=== PATIENT | female | born 1965 | race Caucasian/White ===

== ENCOUNTER → 2017-03-29 | Outpatient (CLI) | payer MEDICARE, MEDICAID ==
[~2017-03-29] MED LIST: ALBUTEROL0.09 MG/A2 IH; ALPRAZOLAM0.5 M3 PO; AMOXIL125 MG; BACTRIM DS 8001 TA1 PO; BRIN20TA PO; CANAGLIFLOZIN PO; CELEXA20 MG PO; CELEXA40 MG PO; CHERATUSSIN AC120 ML PO; CLARITIN10 MG PO; CLINDAMYCIN HC300 MG PO; CLINDAMYCIN150 MG PO; COLACE100 MG PO; CORDROL20 MG PO; COZAAR100 MG PO; CRESTOR5 MG PO; D-BIOTIN10 MG PO; DITROPAN XL5 MG PO; DIVALPROEX SOD125 MG PO; DRISDOL50000 IU PO; DUONEB 3 MG/3 ML3 M1 INH; FANAPT1 MG PO; FENOFIBRATE160 MG PO; FLEXERIL10 MG PO; FLONASE0.05 MG/AC NS; GLIMEPIRIDE4 MG PO; HYDROXYZINE PAM50 MG PO; INVOKAMET1 TA1 PO; INVOKANA PO; JANUVIA100 MG PO; LEVAQUIN750 M1 PO; LIPITOR10 MG PO; LOSARTAN POTAS100 M1 PO; LYRICA75 MG PO; MEDROL DOSEPAK4 MG PO; METFORMIN500 MG PO; NEXIUM40 MG PO; NORTRIPTYLINE H50 M1 PO; PREDNISONE10 MG PO; PROAIR HFA0.09 MG/AC INH; RANITIDINE300 MG PO; REQUIP1 MG PO; SEPTRA DS 800 M1 TAB PO; SEROQUEL25 MG PO; STELAZINE1 MG PO; Septra Ds 800 M1 TAB PO; TIZANIDINE HCL4 MG PO; TRAZODONE HYDR100 MG PO; TRAZODONE HYDR150 MG PO; TRAZODONE100 MG PO; TRAZODONE150 MG PO; TRICOR145 MG PO; TRILIPIX PO; ULTRAM50 MG PO; VISTARIL50 MG PO; VITAMIN D50000 I3 PO; ZITHROMAX Z PA250 MG PO; ZOFRAN4 MG PO
[2017-03-29 11:23] LABS: BASO % 0.6 % (0.0-1.0); EOS # 0.2 10*3/uL (0.0-0.4); EOS % 2.5 % (1.0-4.0); HEMATOCRIT 43.9 % (37.0-47.0); HEMOGLOBIN 15.7 g/dl (12.0-16.0); LYMPH % 27.7 % (27.0-41.0); MEAN CELL VOLUME 90.9 fl (81.0-99.0); MEAN CORPUSCULAR HGB 32.5 pg (27.0-31.0); MEAN CORPUSCULAR HGB CONC 35.8 g/dl (33.0-37.0); MEAN PLATELET VOLUME 8.5 fl (9.6-12.3); MONO # 0.5 10*3/uL (0.1-1.0); MONO % 6.3 % (3.0-9.0); NEUT # 4.5 10*3/uL (2.3-7.9); NEUT % 62.6 % (47.0-73.0); PLATELET COUNT AUTOMATED 247 10*3/uL (130-400); RED BLOOD COUNT 4.83 10*6/uL (4.10-5.10); RED CELL DISTRI WIDTH 11.5 % (0-14.5); WHITE BLOOD COUNT 7.2 10*3/uL (4.8-10.8)
[2017-03-29 11:51] LABS: ALBUMIN 3.9 gm/dl (3.1-4.5); BUN 16 mg/dl (7-24); CARBON DIOXIDE 30 mmol/L (21-32); CHLORIDE 106 mmol/L (98-107); CHOLESTEROL 166 mg/dL (<200); EST GLOM FILT AFRICAN AMERICAN > 60 ml/min; GLUCOSE 138 mg/dL (65-99); POTASSIUM 4.1 mmol/L (3.5-5.1); SGOT/AST 12 IU/L (3-35); SGPT/ALT 19 U/L (12-78); SODIUM 141 mmol/L (136-145); TRIGLYCERIDES 392 mg/dl (<150); VLDL CHOLESTEROL 78 mg/dL (6-40)
[2017-03-29 11:52] LABS: ALKALINE PHOSPHATASE 103 U/L (45-117); BILIRUBIN, TOTAL 1.2 mg/dl (0.2-1.0); HDL CHOLESTEROL 31 mg/dl (40-60); LDL CHOLESTEROL 57 mg/dL (9-159); TOTAL PROTEIN 7.4 gm/dL (6.4-8.2)
[2017-03-29 11:57] LABS: HEMOGLOBIN A1c 6.5 % (4.8-5.6)
== END | disposition home or self-care (01) ==
LOC: LAB 10:56
PROVIDERS: Family Medicine
DX: E78.00 Pure hypercholesterolemia, unspecified (principal); E11.9 Type 2 diabetes mellitus without complications; L63.8 Other alopecia areata

== ENCOUNTER 2017-08-30 01:13 | Inpatient (IN) | payer MEDICARE, MEDICAID ==
[2017-08-30] VITALS (14 sets, daily range): BP systolic 117–160; BP diastolic 66–98
[~2017-08-30] VITALS: Ht 172.7 cm; Wt 93.6 kg
[2017-08-30 01:37] LABS: ACT PARTIAL THROMBO TIME 23.7 SECONDS (20.8-31.5); BASO # 0.2 10*3/uL (0.0-0.1); EOS # 0.3 10*3/uL (0.0-0.4); EOS % 2.2 % (1.0-4.0); HEMATOCRIT 42.9 % (37.0-47.0); HEMOGLOBIN 15.6 g/dl (12.0-16.0); INTERNATIONAL NORM RATIO 0.9 (2.0-3.5); LYMPH # 4.4 10*3/uL (1.3-4.4); LYMPH % 29.2 % (27.0-41.0); MEAN CELL VOLUME 93.1 fl (81.0-99.0); MEAN CORPUSCULAR HGB 33.8 pg (27.0-31.0); MEAN CORPUSCULAR HGB CONC 36.4 g/dl (33.0-37.0); MEAN PLATELET VOLUME 9.1 fl (9.6-12.3); MONO % 6.5 % (3.0-9.0); NEUT # 9.2 10*3/uL (2.3-7.9); NEUT % 60.8 % (47.0-73.0); PLATELET COUNT AUTOMATED 347 10*3/uL (130-400); RED BLOOD COUNT 4.61 10*6/uL (4.10-5.10); RED CELL DISTRI WIDTH 12.2 % (0-14.5); WHITE BLOOD COUNT 15.1 10*3/uL (4.8-10.8)
[2017-08-30 01:44] LABS: ALBUMIN 3.8 gm/dl (3.1-4.5); ALKALINE PHOSPHATASE 125 U/L (45-117); BUN 19 mg/dl (7-24); CHLORIDE 97 mmol/L (98-107); CREATININE 1.08 mg/dL (0.55-1.02); MAGNESIUM 1.7 mg/dL (1.5-2.1); POTASSIUM 4.1 mmol/L (3.5-5.1); SGOT/AST 39 IU/L (3-35); SGPT/ALT 48 U/L (12-78); SODIUM 131 mmol/L (136-145); TOTAL PROTEIN 7.6 gm/dL (6.4-8.2); TROPONIN I < 0.015 ng/ml (<0.045)
--- NOTE | 2017-08-30 03:00 | NUR ---
A 52, admitted to 5E, under the services of BRODERICK Ibarra DO with a diagnosis of DM, SVT, CHEST PAIN. Chief complaint is TACHYCARDIA. Patient arrived via bed from ER. Monitor applied. Initial assessment completed. Vital signs taken and recorded. BRODERICK IBARRA DO notified of admission to the unit. Orders received. See assessment for past medical history, medications and allergies. Patient and/or family oriented to unit. visitation policy reviewed. Clothing/patient valuable form completed. YOLI JEAN BAPTISTE
[2017-08-30 04:19] LABS: BASO # 0.1 10*3/uL (0.0-0.1); BASO % 0.6 % (0.0-1.0); EOS # 0.3 10*3/uL (0.0-0.4); EOS % 1.9 % (1.0-4.0); HEMATOCRIT 37.7 % (37.0-47.0); HEMOGLOBIN 13.7 g/dl (12.0-16.0); LYMPH # 2.8 10*3/uL (1.3-4.4); LYMPH % 21.1 % (27.0-41.0); MEAN CELL VOLUME 92.2 fl (81.0-99.0); MEAN CORPUSCULAR HGB 33.5 pg (27.0-31.0); MEAN CORPUSCULAR HGB CONC 36.3 g/dl (33.0-37.0); MEAN PLATELET VOLUME 8.6 fl (9.6-12.3); MONO # 0.7 10*3/uL (0.1-1.0); MONO % 5.1 % (3.0-9.0); NEUT # 9.2 10*3/uL (2.3-7.9); NEUT % 70.8 % (47.0-73.0); RED BLOOD COUNT 4.09 10*6/uL (4.10-5.10); RED CELL DISTRI WIDTH 12.2 % (0-14.5)
[2017-08-30 04:22] LABS: PLATELET COUNT AUTOMATED 224 10*3/uL (130-400)
[2017-08-30 04:49] LABS: BUN 16 mg/dl (7-24); CHLORIDE 101 mmol/L (98-107); CHOLESTEROL 186 mg/dL (<200); CREATININE 0.89 mg/dL (0.55-1.02); FREE T4 1.09 ng/dl (0.76-1.46); HDL CHOLESTEROL 19 mg/dl (40-60); MAGNESIUM 1.8 mg/dL (1.5-2.1); PHOSPHOROUS 2.5 mg/dL (2.5-4.9); POTASSIUM 3.6 mmol/L (3.5-5.1); SODIUM 135 mmol/L (136-145)
[2017-08-30 04:57] LABS: TRIGLYCERIDES 1087 mg/dl (<150)
--- NOTE | 2017-08-30 04:59 | NUR ---
NEW ORDER FROM DR. VIZCARRA AT 0341 TO CHECK BLOOD SUGAR AND COVER. BLOOD SUGAR WAS 318 AND SHE WAS COVERED WITH 9U INSULIN[address] DR[address] JONES NOTIFIED OF CONSULT. WILL SEE IN THE MORNING.
[2017-08-30 06:23] LABS: VITAMIN D, 25-HYDROXY 20.5 ng/mL (30-100)
--- NOTE | 2017-08-30 06:34 | NUR ---
DR. WALKER NOTIFIED OF PATIENT DEMANDING IV IN RIGHT AC TO BE REMOVED AND WILL NOT LET NURSE PUT ANOTHER IV IN. HE ORDERED TO D/C FLUIDS AND CONTINUE THE CARDIZEM DRIP IN THE LEFT AC.
--- NOTE | 2017-08-30 09:37 | NUR ---
MEDICATED WITH TYLENOL FOR A HEADACHE SHE RATES A 2 ON THE PAIN SCALE.
--- NOTE | 2017-08-30 10:00 | NUR ---
DR. JONES IN TO SEE PATIENT. CARDIZEM DRIP DECREASED TO 5 MG/HR.
--- NOTE | 2017-08-30 11:00 | NUR ---
PATIENT STATES SOME RELIEF FROM TYLENOL.
--- NOTE | 2017-08-30 11:40 | NUR ---
PATIENT STARTED ON TOPROL XL PO. CARDIZEM DRIP TO BE DISCONTINUED.
--- NOTE | 2017-08-30 12:30 | NUR ---
CARDIZEM DRIP DISCONTINUED.
[2017-08-30 13:56] LABS: BILIRUBIN NEGATIVE (NEGATIVE); BLOOD NEGATIVE (NEGATIVE); CLARITY SL CLOUDY (CLEAR); COLOR YELLOW (YELLOW); GLUCOSE 3+ (NEGATIVE); KETONE NEGATIVE (NEGATIVE); LEUKO ESTERASE 1+ (NEGATIVE); NITRITE NEGATIVE (NEGATIVE); SPECIFIC GRAVITY 1.015 (1.005-1.030); UROBILINOGEN 0.2 E.U./dl (0.2-1.0)
[2017-08-30 14:09] LABS: BACTERIA 2+; EPITHELIAL CELLS 50-55; WBC 41-50 wbc/hpf (0-5)
[2017-08-30 14:12] LABS: URINE AMPHETAMINES < 1000 (1000ng/ml); URINE BARBITURATES < 200 (200ng/ml); URINE BENZODIAZEPINES < 200 (200ng/ml); URINE CANNABINOIDS (THC) > 50 (50ng/ml); URINE COCAINE < 300 (300ng/ml); URINE METHADONE < 300 (300ng/ml); URINE OPIATES < 300 (300ng/ml)
[2017-08-30 14:13] LABS: URINE PHENCYCLIDINE < 25 (25ng/ml)
--- NOTE | 2017-08-30 16:53 | NUR ---
MEDICATED WITH TYLENOL FOR HEADACHE SHE RATES A 4 ON THE PAIN SCALE.
--- NOTE | 2017-08-30 18:23 | NUR ---
NO FURTHER COMPLAINTS.
--- NOTE | 2017-08-30 20:00 | NUR ---
ASSUMED CARE OF PATIENT. ASSESSMENT COMPLETE. RESTING IN BED. FAMILY AT BEDSIDE. CALL LIGHT IN REACH. WILL CONTINUE TO MONITOR.
[2017-08-31] VITALS: BP 137/70
[2017-08-31 06:50] LABS: BASO # 0.1 10*3/uL (0.0-0.1); BASO % 0.7 % (0.0-1.0); EOS # 0.3 10*3/uL (0.0-0.4); EOS % 3.3 % (1.0-4.0); HEMATOCRIT 37.1 % (37.0-47.0); LYMPH # 2.2 10*3/uL (1.3-4.4); LYMPH % 29.1 % (27.0-41.0); MEAN CELL VOLUME 94.4 fl (81.0-99.0); MEAN CORPUSCULAR HGB 33.1 pg (27.0-31.0); MONO # 0.5 10*3/uL (0.1-1.0); MONO % 6.1 % (3.0-9.0); NEUT # 4.5 10*3/uL (2.3-7.9); NEUT % 60.3 % (47.0-73.0); PLATELET COUNT AUTOMATED 197 10*3/uL (130-400); RED BLOOD COUNT 3.93 10*6/uL (4.10-5.10); RED CELL DISTRI WIDTH 12.4 % (0-14.5); WHITE BLOOD COUNT 7.5 10*3/uL (4.8-10.8)
[2017-08-31 07:16] LABS: BUN 19 mg/dl (7-24); CHLORIDE 104 mmol/L (98-107); CREATININE 0.87 mg/dL (0.55-1.02); MAGNESIUM 1.9 mg/dL (1.5-2.1); POTASSIUM 4.1 mmol/L (3.5-5.1); SODIUM 138 mmol/L (136-145)
[2017-08-31 08:00] VITALS: BP 149/64
--- NOTE | 2017-08-31 08:30 | NUR ---
EXECUTIVE RELATIONS SPECIALIST VS. PT DID NOT WAKEN WHEN I CALLED HER NAME.
[2017-08-31 12:00] VITALS: BP 140/70
--- NOTE | 2017-08-31 12:41 | NUR ---
MEDICATED WITH ZOFRAN FOR NAUSEA.
--- NOTE | 2017-08-31 12:49 | NUR ---
TO CARDIAC REHAB.
--- NOTE | 2017-08-31 13:15 | NUR ---
INFORMED CONSENT OBTAINED FOR LEXISCAN NUCLEAR STRESS TEST WITH DR. JONES. RESTING EKG NSR WITH A RESTING HR OF 78 AND BP OF 130/80. LUNGS CLEAR WITH SPO2 OF 97% ON ROOM AIR. PT COMPLETED A 1:00 LEXISCAN PROTOCOL RECEIVING LEXISCAN 0.4 MG IV OVER 10 SECONDS. HAD NO CHEST PAIN OR ANY EKG CHANGES. DID C/O FEELING "WOOZY" THAT WAS RELIEVED IN RECOVERY. HAD A PEAK HR OF 112 WITH BP OF 120/80. LAST RECOVERY HR OF 98 WITH BP OF 120/82. AWAITING SCANNING IN STABLE CONDITION.
--- NOTE | 2017-08-31 14:27 | NUR ---
RETURNED FROM STRESS TEST.
[2017-08-31 16:00] VITALS: BP 151/81
[2017-08-31] MEDS ORDERED: ATORVASTATIN CA80 M1 PO (16:08)
[2017-08-31] MEDS ORDERED: METOPROLOL SUCC25 M2 PO (16:08)
[2017-08-31] MEDS ORDERED: Vitamin D PO (16:08)
[2017-08-31] MEDS ORDERED: FOLGARD TABLET1 EACH PO (16:08)
--- NOTE | 2017-08-31 18:00 | NUR ---
HEP LOCK REMOVED FOR DISCHARGE. Discharge instructions reviewed with patient/family. Patient receptive and verbalizes understanding. Follow-up care arranged. Written instructions given to patient/family. AYESHA STEPHENS
== END 2017-08-31 18:00 | disposition home or self-care (01) | DRG 309 ==
LOC: ED 01:13 → 5E 02:26 → EDHOLD 02:26 → 5E 02:37
PROVIDERS: Emergency Medicine Emergency Medical Services; Internal Medicine Nephrology; Student in an Organized Health Care Education/Training Program; ADMIT Internal Medicine
PROC: 4A02XM4 Measurement of Cardiac Total Activity, External Approach (ICD-10-PCS; principal; 2017-08-31)
PROC: 3E073KZ Introduction of Other Diagnostic Substance into Coronary Artery, Percutaneous Approach (ICD-10-PCS; principal; 2017-08-31)
DX: I47.1 Supraventricular tachycardia (principal); R65.10 Systemic inflammatory response syndrome (SIRS) of non-infectious origin without acute organ dysfunction; E87.8 Other disorders of electrolyte and fluid balance, not elsewhere classified; E11.65 Type 2 diabetes mellitus with hyperglycemia; F33.9 Major depressive disorder, recurrent, unspecified; K21.9 Gastro-esophageal reflux disease without esophagitis; D72.829 Elevated white blood cell count, unspecified; R74.0 Nonspecific elevation of levels of transaminase and lactic acid dehydrogenase [LDH]; F41.1 Generalized anxiety disorder; R07.9 Chest pain, unspecified; J44.9 Chronic obstructive pulmonary disease, unspecified; E78.00 Pure hypercholesterolemia, unspecified; I11.9 Hypertensive heart disease without heart failure; F17.210 Nicotine dependence, cigarettes, uncomplicated; Z88.0 Allergy status to penicillin; Z88.6 Allergy status to analgesic agent; Z88.8 Allergy status to other drugs, medicaments and biological substances; Z88.7 Allergy status to serum and vaccine; Z82.49 Family history of ischemic heart disease and other diseases of the circulatory system; Z83.3 Family history of diabetes mellitus; Z81.8 Family history of other mental and behavioral disorders; Z91.14 Patient's other noncompliance with medication regimen; Z90.49 Acquired absence of other specified parts of digestive tract; Z98.51 Tubal ligation status; Z90.79 Acquired absence of other genital organ(s); Z90.722 Acquired absence of ovaries, bilateral; Z79.899 Other long term (current) drug therapy; Z80.8 Family history of malignant neoplasm of other organs or systems; Z82.5 Family history of asthma and other chronic lower respiratory diseases

== ENCOUNTER 2017-10-30 19:08 | Emergency (ER) | payer MEDICARE, MEDICAID ==
[~2017-10-30] VITALS: Ht 175.2 cm; Wt 86.2 kg
--- NOTE | ~2017-10-30 | EKG ---
[place], [place] ELECTROCARDIOGRAM REPORT NAME: NONA ARSHAD UNIT #: [id number] ROOM: DOCTOR: ROZINA AMES,BHASKAR BIRTHDATE: [birth year] DOS: 10/30/2017 TIME: 1920 hours. IMPRESSION: 1. Sinus rhythm, sinus tachycardia. 2. Supraventricular ectopy. 2. Occasional ventricular ectopy. 4. Nondiagnostic ST-T changes. BHASKAR HANDY MD CM:EKGRPT:ELECTROCARDIOGRAM REPORT [id number] BHASKAR HANDY MD
--- NOTE | ~2017-10-30 | EKG ---
[place], [place] ELECTROCARDIOGRAM REPORT NAME: NONA ARSHAD UNIT #: [id number] ROOM: DOCTOR: ROZINA AMES,BHASKAR BIRTHDATE: [birth year] DOS: 10/30/2017 TIME: 1917 hours. IMPRESSION: 1. Supraventricular tachycardia, narrow complex, regularly, possible atrioventricular [place] tachycardia versus atrial tachycardia versus atrial flutter. 2. ST-T changes are due to tachycardia, mostly in the inferior and anterior leads. BHASKAR HANDY MD CM:EKGRPT:ELECTROCARDIOGRAM REPORT [id number] BHASKAR HANDY MD
[~2017-10-30 19:08] MED LIST changes: +ATORVASTATIN CA80 M1 PO; +FOLGARD TABLET1 EACH PO; +METOPROLOL SUCC25 M2 PO; +Vitamin D PO
[2017-10-30 19:34] LABS: BASO # 0.1 10*3/uL (0.0-0.1); BASO % 0.7 % (0.0-1.0); EOS # 0.1 10*3/uL (0.0-0.4); EOS % 1.8 % (1.0-4.0); HEMATOCRIT 38.7 % (37.0-47.0); HEMOGLOBIN 13.8 g/dl (12.0-16.0); LYMPH % 27.4 % (27.0-41.0); MEAN CELL VOLUME 92.1 fl (81.0-99.0); MEAN CORPUSCULAR HGB 32.9 pg (27.0-31.0); MEAN CORPUSCULAR HGB CONC 35.7 g/dl (33.0-37.0); MEAN PLATELET VOLUME 8.8 fl (9.6-12.3); MONO # 0.5 10*3/uL (0.1-1.0); MONO % 6.4 % (3.0-9.0); NEUT # 4.7 10*3/uL (2.3-7.9); NEUT % 63.4 % (47.0-73.0); PLATELET COUNT AUTOMATED 270 10*3/uL (130-400); RED CELL DISTRI WIDTH 12.6 % (0-14.5); WHITE BLOOD COUNT 7.4 10*3/uL (4.8-10.8)
[2017-10-30 19:47] LABS: ACT PARTIAL THROMBO TIME 23.6 SECONDS (20.8-31.5)
[2017-10-30 19:53] LABS: ALBUMIN 3.3 gm/dl (3.1-4.5); ALKALINE PHOSPHATASE 129 U/L (45-117); BUN 19 mg/dl (7-24); CHLORIDE 105 mmol/L (98-107); CREATININE 1.17 mg/dL (0.55-1.02); POTASSIUM 3.6 mmol/L (3.5-5.1); SGOT/AST 20 IU/L (3-35); SGPT/ALT 29 U/L (12-78); SODIUM 138 mmol/L (136-145); TOTAL PROTEIN 6.9 gm/dL (6.4-8.2)
[2017-10-30 19:56] LABS: TROPONIN I < 0.015 ng/ml (<0.045)
[2017-10-30 19:57] VITALS: BP 137/83
== END 2017-10-30 20:02 | disposition left against medical advice (07) ==
LOC: ED 19:08
PROVIDERS: Emergency Medicine
DX: R07.9 Chest pain, unspecified (principal); J45.909 Unspecified asthma, uncomplicated; K21.9 Gastro-esophageal reflux disease without esophagitis; I10 Essential (primary) hypertension; E78.5 Hyperlipidemia, unspecified; E78.00 Pure hypercholesterolemia, unspecified; F32.9 Major depressive disorder, single episode, unspecified; F31.9 Bipolar disorder, unspecified; E11.9 Type 2 diabetes mellitus without complications; F12.10 Cannabis abuse, uncomplicated; Z88.0 Allergy status to penicillin; Z88.6 Allergy status to analgesic agent; Z88.8 Allergy status to other drugs, medicaments and biological substances; Z79.899 Other long term (current) drug therapy; Z90.49 Acquired absence of other specified parts of digestive tract; Z98.51 Tubal ligation status

== ENCOUNTER 2017-11-13 19:00 | Inpatient (IN) | payer MEDICARE, MEDICAID ==
[~2017-11-13] VITALS: Ht 175.2 cm; Wt 91.7 kg
[2017-11-13 19:09] VITALS: BP 167/93
[2017-11-13 19:15] LABS: BASO # 0.1 10*3/uL (0.0-0.1); BASO % 1.1 % (0.0-1.0); EOS # 0.2 10*3/uL (0.0-0.4); HEMATOCRIT 43.6 % (37.0-47.0); HEMOGLOBIN 15.6 g/dl (12.0-16.0); LYMPH # 2.3 10*3/uL (1.3-4.4); LYMPH % 24.6 % (27.0-41.0); MEAN CELL VOLUME 91.6 fl (81.0-99.0); MEAN CORPUSCULAR HGB 32.8 pg (27.0-31.0); MEAN CORPUSCULAR HGB CONC 35.8 g/dl (33.0-37.0); MEAN PLATELET VOLUME 8.8 fl (9.6-12.3); MONO # 0.5 10*3/uL (0.1-1.0); MONO % 5.4 % (3.0-9.0); NEUT # 6.3 10*3/uL (2.3-7.9); NEUT % 66.5 % (47.0-73.0); PLATELET COUNT AUTOMATED 272 10*3/uL (130-400); RED BLOOD COUNT 4.76 10*6/uL (4.10-5.10); RED CELL DISTRI WIDTH 12.1 % (0-14.5); WHITE BLOOD COUNT 9.5 10*3/uL (4.8-10.8)
[2017-11-13 19:27] VITALS: BP 117/79
[2017-11-13 19:27] LABS: ACT PARTIAL THROMBO TIME 23.3 SECONDS (20.8-31.5)
[2017-11-13 19:34] LABS: ALBUMIN 3.9 gm/dl (3.1-4.5); ALKALINE PHOSPHATASE 144 U/L (45-117); BUN 15 mg/dl (7-24); CHLORIDE 99 mmol/L (98-107); POTASSIUM 4.1 mmol/L (3.5-5.1); SGOT/AST 20 IU/L (3-35); SGPT/ALT 27 U/L (12-78); SODIUM 134 mmol/L (136-145); TOTAL PROTEIN 7.9 gm/dL (6.4-8.2)
[2017-11-13 19:35] LABS: TROPONIN I < 0.015 ng/ml (<0.045)
[2017-11-13 20:16] VITALS: BP 137/88
[2017-11-14] VITALS: BP 166/98
[2017-11-14 04:00] VITALS: BP 129/80
== END 2017-11-14 08:34 | disposition left against medical advice (07) | DRG 313 ==
LOC: ED 19:00 → 4E 19:51 → EDHOLD 19:51 → 4E 20:20
PROVIDERS: Emergency Medicine Emergency Medical Services
DX: R07.9 Chest pain, unspecified (principal); I48.91 Unspecified atrial fibrillation; E11.9 Type 2 diabetes mellitus without complications; F32.9 Major depressive disorder, single episode, unspecified; F41.9 Anxiety disorder, unspecified; I10 Essential (primary) hypertension; J45.909 Unspecified asthma, uncomplicated; K21.9 Gastro-esophageal reflux disease without esophagitis; M54.9 Dorsalgia, unspecified; Z53.21 Procedure and treatment not carried out due to patient leaving prior to being seen by health care provider; Z81.8 Family history of other mental and behavioral disorders; Z86.79 Personal history of other diseases of the circulatory system; Z88.0 Allergy status to penicillin; Z88.6 Allergy status to analgesic agent; Z88.8 Allergy status to other drugs, medicaments and biological substances; Z88.7 Allergy status to serum and vaccine; Z83.3 Family history of diabetes mellitus; Z82.49 Family history of ischemic heart disease and other diseases of the circulatory system; Z80.9 Family history of malignant neoplasm, unspecified

== ENCOUNTER → 2017-11-22 | Outpatient (CLI) | payer MEDICARE, MEDICAID | END | disposition home or self-care (01) | LOC: LAB 12:47 | DX: L63.8 Other alopecia areata (principal); E78.5 Hyperlipidemia, unspecified; E11.9 Type 2 diabetes mellitus without complications; K21.9 Gastro-esophageal reflux disease without esophagitis ==

== ENCOUNTER 2018-01-03 16:03 | Inpatient (IN) | payer MEDICARE, MEDICAID ==
[~2018-01-03] VITALS: Ht 172.7 cm; Wt 90.7 kg
[2018-01-03 16:12] VITALS: BP 192/110
[2018-01-03 16:27] LABS: BASO # 0.1 10*3/uL (0.0-0.1); BASO % 0.5 % (0.0-1.0); EOS # 0.1 10*3/uL (0.0-0.4); EOS % 0.9 % (1.0-4.0); HEMATOCRIT 46.1 % (37.0-47.0); HEMOGLOBIN 16.8 g/dl (12.0-16.0); LYMPH # 1.9 10*3/uL (1.3-4.4); LYMPH % 16.6 % (27.0-41.0); MEAN CELL VOLUME 90.4 fl (81.0-99.0); MEAN CORPUSCULAR HGB 32.9 pg (27.0-31.0); MEAN CORPUSCULAR HGB CONC 36.4 g/dl (33.0-37.0); MEAN PLATELET VOLUME 8.7 fl (9.6-12.3); MONO # 0.6 10*3/uL (0.1-1.0); MONO % 4.9 % (3.0-9.0); NEUT # 8.8 10*3/uL (2.3-7.9); NEUT % 76.7 % (47.0-73.0); PLATELET COUNT AUTOMATED 308 10*3/uL (130-400); WHITE BLOOD COUNT 11.5 10*3/uL (4.8-10.8)
[2018-01-03 16:45] LABS: ALBUMIN 3.9 gm/dl (3.1-4.5); ALKALINE PHOSPHATASE 143 U/L (45-117); BUN 16 mg/dl (7-24); CHLORIDE 101 mmol/L (98-107); CREATININE 0.81 mg/dL (0.55-1.02); POTASSIUM 3.4 mmol/L (3.5-5.1); SGOT/AST 13 IU/L (3-35); SGPT/ALT 25 U/L (12-78); SODIUM 136 mmol/L (136-145)
[2018-01-03 16:46] LABS: TROPONIN I < 0.015 ng/ml (<0.045)
[2018-01-03 17:48] VITALS: BP 118/76
[2018-01-03 19:38] VITALS: BP 117/73
[2018-01-03 20:10] VITALS: BP 135/90
[2018-01-03] MEDS ORDERED: JANUMET XR 50-1 EAC1 PO (20:55)
[2018-01-03] MEDS ORDERED: NEXIUM40 MG PO (20:56)
[2018-01-03] MEDS ORDERED: CELEXA20 MG PO (20:56)
[2018-01-03] MEDS ORDERED: ALPRAZOLAM0.5 M3 PO (20:57)
[2018-01-03] MEDS ORDERED: ALDACTONE50 M1 PO (20:57)
[2018-01-04] VITALS: BP 95/48
[2018-01-04 06:06] LABS: BASO # 0.1 10*3/uL (0.0-0.1); BASO % 0.7 % (0.0-1.0); EOS # 0.2 10*3/uL (0.0-0.4); EOS % 3.5 % (1.0-4.0); HEMATOCRIT 42.4 % (37.0-47.0); LYMPH # 2.3 10*3/uL (1.3-4.4); LYMPH % 33.8 % (27.0-41.0); MEAN CORPUSCULAR HGB 32.5 pg (27.0-31.0); MEAN CORPUSCULAR HGB CONC 34.7 g/dl (33.0-37.0); MEAN PLATELET VOLUME 8.7 fl (9.6-12.3); MONO # 0.5 10*3/uL (0.1-1.0); MONO % 7.3 % (3.0-9.0); NEUT # 3.7 10*3/uL (2.3-7.9); NEUT % 54.3 % (47.0-73.0); PLATELET COUNT AUTOMATED 227 10*3/uL (130-400); RED BLOOD COUNT 4.53 10*6/uL (4.10-5.10); RED CELL DISTRI WIDTH 12.3 % (0-14.5); WHITE BLOOD COUNT 6.8 10*3/uL (4.8-10.8)
[2018-01-04 06:26] LABS: HEMOGLOBIN 14.7 g/dl (12.0-16.0); MEAN CELL VOLUME 93.6 fl (81.0-99.0)
[2018-01-04 06:38] LABS: ALBUMIN 3.2 gm/dl (3.1-4.5); CHLORIDE 104 mmol/L (98-107); SGOT/AST 16 IU/L (3-35); SGPT/ALT 22 U/L (12-78); SODIUM 138 mmol/L (136-145)
[2018-01-04 06:39] LABS: ACT PARTIAL THROMBO TIME 22.6 SECONDS (20.8-31.5)
[2018-01-04 06:47] LABS: ALKALINE PHOSPHATASE 106 U/L (45-117); BUN 19 mg/dl (7-24); CHOLESTEROL 164 mg/dL (<200); CREATININE 0.79 mg/dL (0.55-1.02); HDL CHOLESTEROL 23 mg/dl (40-60); THYROID STIM HORMONE (HS) 0.817 uIU/ml (0.358-4.75); TOTAL PROTEIN 6.5 gm/dL (6.4-8.2); TRIGLYCERIDES 516 mg/dl (<150)
[2018-01-04 06:57] LABS: VITAMIN D, 25-HYDROXY 27.3 ng/mL (30-100)
[2018-01-04 08:00] VITALS: BP 96/56
[2018-01-04] MEDS ORDERED: VITAMIN D-32000 UNIT PO (10:31)
== END 2018-01-04 11:45 | disposition left against medical advice (07) | DRG 313 ==
LOC: ED 16:03 → EDHOLD 18:46 → 5E 19:47
PROVIDERS: Emergency Medicine; Family Medicine Adult Medicine
DX: R07.9 Chest pain, unspecified (principal); E11.65 Type 2 diabetes mellitus with hyperglycemia; L03.032 Cellulitis of left toe; E78.00 Pure hypercholesterolemia, unspecified; K21.9 Gastro-esophageal reflux disease without esophagitis; I10 Essential (primary) hypertension; R00.0 Tachycardia, unspecified; E80.6 Other disorders of bilirubin metabolism; E87.6 Hypokalemia; D64.9 Anemia, unspecified; R74.0 Nonspecific elevation of levels of transaminase and lactic acid dehydrogenase [LDH]; E55.9 Vitamin D deficiency, unspecified; E53.8 Deficiency of other specified B group vitamins; F12.90 Cannabis use, unspecified, uncomplicated; J45.909 Unspecified asthma, uncomplicated; F31.9 Bipolar disorder, unspecified; F41.1 Generalized anxiety disorder; E78.5 Hyperlipidemia, unspecified; Z90.89 Acquired absence of other organs; Z90.49 Acquired absence of other specified parts of digestive tract; Z98.51 Tubal ligation status; Z83.6 Family history of other diseases of the respiratory system; Z86.79 Personal history of other diseases of the circulatory system; Z82.49 Family history of ischemic heart disease and other diseases of the circulatory system; Z80.8 Family history of malignant neoplasm of other organs or systems; Z88.0 Allergy status to penicillin; Z88.8 Allergy status to other drugs, medicaments and biological substances; Z88.7 Allergy status to serum and vaccine; Z79.899 Other long term (current) drug therapy

== ENCOUNTER 2018-02-19 17:00 | Inpatient (IN) | payer MEDICARE, MEDICAID ==
[~2018-02-19] VITALS: Ht 175.2 cm; Wt 90.3 kg
--- NOTE | ~2018-02-19 | CON ---
[place], [place] REPORT OF CONSULTATION NAME: NONA ARSHAD UNIT #: [id number] ROOM: 519 DOCTOR: LISA PETTY MD BIRTHDATE: [birth year] DOS: 02/21/2018 CHIEF COMPLAINT: "I came in here because of chest pain, but I have not slept for weeks. HISTORY OF PRESENT ILLNESS: This is a 52-year-old white female known to me from my previous practice in [place], [place]. The patient is admitted due to chest pain and reports that she is going to be having an ablation soon. 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 He is returning to the area to be with her. She reports ongoing depression with poor sleep with difficulty falling asleep, sleep continuity disturbance, commonwealth attorney awakening, anergia, anhedonia, crying spells, extreme anxiety. The anxiety is overriding throughout the day and often times will trigger bouts of chest pain. She most recently states that she has been tried on trazodone as high as 300 mg at bedtime with it not being effective anymore for sleep. She has been using Xanax at home and instead of using 0.5 mg 3 times a day she has been using one in the morning and using 2 at night for sleep aid, which does give her some sleep. She reports having tried Rozerem, but it too has been ineffective. She has also been on multiple antidepressants including Remeron without effect. She is willing to allow me to adjust her medications. MENTAL STATUS: She is alert and oriented. Mood does seem to be depressed with anxious overtones. She endorses multiple neurovegetative symptoms. She is not suicidal or homicidal, or self-injurious. She is not manic, hypomanic or psychotic. Memory is intact. DIAGNOSES: Major depression, recurrent, dysthymic disorder and panic disorder. PLAN: I will order her Xanax 0.5 mg b.i.d. and 1 mg at bedtime. Also, utilize Seroquel 50 mg at bedtime as a mood stabilizer and sleep aid. I will discontinue her trazodone due to ineffectiveness. She had in the past been seeing Dr. Wesley Damon as a counselor. It may not be a bad idea to restart counseling services and then follow up with Mariana Disla, the nurse practitioner, when discharged. LISA PETTY MD CM:CONSTR:REPORT OF CONSULTATION [id number] 02/21/18 1008 interface
[~2018-02-19 17:00] MED LIST changes: +ALDACTONE50 M1 PO; +JANUMET XR 50-1 EAC1 PO; +VITAMIN D-32000 UNIT PO
[2018-02-19 17:14] VITALS: BP 136/68
[2018-02-19 17:45] LABS: ACT PARTIAL THROMBO TIME 23.3 SECONDS (20.8-31.5)
[2018-02-19 17:50] LABS: ALKALINE PHOSPHATASE 149 U/L (45-117); BASO # 0.1 10*3/uL (0.0-0.1); BASO % 0.7 % (0.0-1.0); BUN 24 mg/dl (7-24); CHLORIDE 97 mmol/L (98-107); CREATININE 1.11 mg/dL (0.55-1.02); EOS # 0.2 10*3/uL (0.0-0.4); EOS % 1.5 % (1.0-4.0); HEMATOCRIT 43.9 % (37.0-47.0); LYMPH # 3.2 10*3/uL (1.3-4.4); LYMPH % 27.7 % (27.0-41.0); MEAN CELL VOLUME 89.2 fl (81.0-99.0); MEAN CORPUSCULAR HGB 32.5 pg (27.0-31.0); MEAN CORPUSCULAR HGB CONC 36.4 g/dl (33.0-37.0); MEAN PLATELET VOLUME 9.1 fl (9.6-12.3); MONO # 0.5 10*3/uL (0.1-1.0); MONO % 4.8 % (3.0-9.0); NEUT # 7.4 10*3/uL (2.3-7.9); NEUT % 64.9 % (47.0-73.0); PLATELET COUNT AUTOMATED 313 10*3/uL (130-400); POTASSIUM 4.4 mmol/L (3.5-5.1); RED BLOOD COUNT 4.92 10*6/uL (4.10-5.10); SGOT/AST 33 IU/L (3-35); SGPT/ALT 27 U/L (12-78); SODIUM 131 mmol/L (136-145); TOTAL PROTEIN 8.1 gm/dL (6.4-8.2); WHITE BLOOD COUNT 11.4 10*3/uL (4.8-10.8)
[2018-02-19 17:57] LABS: TROPONIN I < 0.015 ng/ml (<0.045)
[2018-02-19 18:02] VITALS: BP 149/90
[2018-02-19 18:17] VITALS: BP 149/90
[2018-02-19 19:27] VITALS: BP 138/82
[2018-02-19 19:45] VITALS: BP 152/88
[2018-02-20] VITALS: BP 144/81
[2018-02-20 08:00] VITALS: BP 133/79
[2018-02-20 12:00] VITALS: BP 128/72
[2018-02-20 16:00] VITALS: BP 138/89
[2018-02-21] VITALS: BP 121/81
[2018-02-21 10:35] VITALS: BP 140/86
[2018-02-21 12:00] VITALS: BP 134/80
[2018-02-21] MEDS ORDERED: XANAX1 MG PO (12:53)
[2018-02-21] MEDS ORDERED: QUETIAPINE FUMA50 M1 PO (12:53)
[2018-02-21] MEDS ORDERED: METOPROLOL SUCC25 M2 PO (12:53)
[2018-02-21 16:00] VITALS: BP 139/78
== END 2018-02-21 15:51 | disposition home or self-care (01) | DRG 206 ==
LOC: ED 17:00 → EDHOLD 18:22 → 5E 18:22 → EDHOLD 18:36 → 5E 18:44
PROVIDERS: Student in an Organized Health Care Education/Training Program
DX: M94.0 Chondrocostal junction syndrome [Tietze] (principal); E87.8 Other disorders of electrolyte and fluid balance, not elsewhere classified; E11.65 Type 2 diabetes mellitus with hyperglycemia; E87.1 Hypo-osmolality and hyponatremia; I47.1 Supraventricular tachycardia; F41.1 Generalized anxiety disorder; K21.9 Gastro-esophageal reflux disease without esophagitis; J45.909 Unspecified asthma, uncomplicated; Z88.0 Allergy status to penicillin; F12.10 Cannabis abuse, uncomplicated; E78.2 Mixed hyperlipidemia; F31.9 Bipolar disorder, unspecified; I10 Essential (primary) hypertension; Z90.49 Acquired absence of other specified parts of digestive tract; Z90.710 Acquired absence of both cervix and uterus; Z88.4 Allergy status to anesthetic agent; Z98.51 Tubal ligation status; Z72.89 Other problems related to lifestyle; Z83.6 Family history of other diseases of the respiratory system; Z80.8 Family history of malignant neoplasm of other organs or systems; Z83.3 Family history of diabetes mellitus; Z82.49 Family history of ischemic heart disease and other diseases of the circulatory system; Z79.4 Long term (current) use of insulin; Z91.14 Patient's other noncompliance with medication regimen

== ENCOUNTER 2018-02-28 17:06 | Emergency (ER) | payer MEDICARE, MEDICAID ==
[~2018-02-28] VITALS: Wt 89.8 kg
[~2018-02-28 17:06] MED LIST changes: +QUETIAPINE FUMA50 M1 PO; +XANAX1 MG PO
[2018-02-28 17:41] LABS: BASO % 0.6 % (0.0-1.0); EOS # 0.1 10*3/uL (0.0-0.4); EOS % 1.1 % (1.0-4.0); HEMATOCRIT 41.8 % (37.0-47.0); HEMOGLOBIN 14.9 g/dl (12.0-16.0); LYMPH # 2.2 10*3/uL (1.3-4.4); LYMPH % 30.8 % (27.0-41.0); MEAN CELL VOLUME 92.3 fl (81.0-99.0); MEAN CORPUSCULAR HGB 32.9 pg (27.0-31.0); MEAN CORPUSCULAR HGB CONC 35.6 g/dl (33.0-37.0); MEAN PLATELET VOLUME 8.7 fl (9.6-12.3); MONO # 0.3 10*3/uL (0.1-1.0); MONO % 4.3 % (3.0-9.0); NEUT # 4.6 10*3/uL (2.3-7.9); NEUT % 62.6 % (47.0-73.0); PLATELET COUNT AUTOMATED 250 10*3/uL (130-400); RED BLOOD COUNT 4.53 10*6/uL (4.10-5.10); WHITE BLOOD COUNT 7.3 10*3/uL (4.8-10.8)
[2018-02-28 17:54] LABS: BUN 11 mg/dl (7-24); CHLORIDE 103 mmol/L (98-107); CREATININE 0.94 mg/dL (0.55-1.02); POTASSIUM 3.8 mmol/L (3.5-5.1); SODIUM 138 mmol/L (136-145)
[2018-02-28 17:56] LABS: ACETAMINOPHEN (TYLENOL) < 2.0 ug/ml (10-30)
[2018-02-28 19:34] LABS: BILIRUBIN NEGATIVE (NEGATIVE); BLOOD NEGATIVE (NEGATIVE); CLARITY CLEAR (CLEAR); COLOR YELLOW (YELLOW); GLUCOSE 3+ (NEGATIVE); KETONE NEGATIVE (NEGATIVE); LEUKO ESTERASE NEGATIVE (NEGATIVE); NITRITE NEGATIVE (NEGATIVE); UROBILINOGEN 0.2 E.U./dl (0.2-1.0)
[2018-02-28 19:43] LABS: URINE AMPHETAMINES < 1000 (1000ng/ml); URINE BARBITURATES < 200 (200ng/ml); URINE BENZODIAZEPINES < 200 (200ng/ml); URINE CANNABINOIDS (THC) > 50 (50ng/ml); URINE COCAINE < 300 (300ng/ml); URINE METHADONE < 300 (300ng/ml); URINE OPIATES < 300 (300ng/ml)
[2018-02-28 19:44] LABS: URINE PHENCYCLIDINE < 25 (25ng/ml)
[2018-02-28 19:55] LABS: RBC 0-2 rbc/hpf (0-2); WBC 0-2 wbc/hpf (0-5)
[2018-03-01 07:25] VITALS: BP 144/78
== END 2018-03-01 09:29 | disposition home or self-care (01) ==
LOC: ED 17:06
PROVIDERS: Emergency Medicine
DX: F31.9 Bipolar disorder, unspecified (principal); K21.9 Gastro-esophageal reflux disease without esophagitis; I10 Essential (primary) hypertension; E11.65 Type 2 diabetes mellitus with hyperglycemia; E78.5 Hyperlipidemia, unspecified; F17.200 Nicotine dependence, unspecified, uncomplicated; J45.909 Unspecified asthma, uncomplicated; Z88.0 Allergy status to penicillin; Z88.5 Allergy status to narcotic agent; Z88.6 Allergy status to analgesic agent; Z79.899 Other long term (current) drug therapy

== ENCOUNTER 2018-04-29 14:30 | Emergency (ER) | payer MEDICARE, MEDICAID ==
[~2018-04-29] VITALS: Ht 172.7 cm; Wt 85.3 kg
[2018-04-29 14:49] LABS: BASO # 0.1 10*3/uL (0.0-0.1); EOS # 0.2 10*3/uL (0.0-0.4); EOS % 2.6 % (1.0-4.0); HEMATOCRIT 43.5 % (37.0-47.0); HEMOGLOBIN 15.5 g/dl (12.0-16.0); LYMPH % 26.3 % (27.0-41.0); MEAN CELL VOLUME 90.6 fl (81.0-99.0); MEAN CORPUSCULAR HGB 32.3 pg (27.0-31.0); MEAN CORPUSCULAR HGB CONC 35.6 g/dl (33.0-37.0); MEAN PLATELET VOLUME 8.8 fl (9.6-12.3); MONO # 0.5 10*3/uL (0.1-1.0); MONO % 5.8 % (3.0-9.0); NEUT % 63.9 % (47.0-73.0); PLATELET COUNT AUTOMATED 277 10*3/uL (130-400); RED CELL DISTRI WIDTH 11.7 % (0-14.5); WHITE BLOOD COUNT 7.8 10*3/uL (4.8-10.8)
[2018-04-29] MEDS ORDERED: ASPIRIN CHEWABL81 MG PO (14:59)
[2018-04-29 15:05] LABS: ALBUMIN 3.9 gm/dl (3.1-4.5); ALKALINE PHOSPHATASE 159 U/L (45-117); BUN 13 mg/dl (7-24); CHLORIDE 102 mmol/L (98-107); CREATININE 0.92 mg/dL (0.55-1.02); POTASSIUM 4.3 mmol/L (3.5-5.1); SGOT/AST 21 IU/L (3-35); SGPT/ALT 34 U/L (12-78); SODIUM 137 mmol/L (136-145); TOTAL PROTEIN 7.8 gm/dL (6.4-8.2)
[2018-04-29 15:06] LABS: TROPONIN I < 0.015 ng/ml (<0.045)
[2018-04-29 15:35] VITALS: BP 136/91
== END 2018-04-29 17:33 | disposition home or self-care (01) ==
LOC: ED 14:30
PROVIDERS: Emergency Medicine
DX: R07.9 Chest pain, unspecified (principal); J45.909 Unspecified asthma, uncomplicated; F31.9 Bipolar disorder, unspecified; K21.9 Gastro-esophageal reflux disease without esophagitis; I10 Essential (primary) hypertension; E78.5 Hyperlipidemia, unspecified; E78.00 Pure hypercholesterolemia, unspecified; E87.6 Hypokalemia; E11.65 Type 2 diabetes mellitus with hyperglycemia; Z88.5 Allergy status to narcotic agent; Z88.0 Allergy status to penicillin; Z88.6 Allergy status to analgesic agent; Z79.82 Long term (current) use of aspirin; Z79.899 Other long term (current) drug therapy; Z90.49 Acquired absence of other specified parts of digestive tract; Z98.51 Tubal ligation status

== ENCOUNTER → 2018-05-02 | Outpatient (CLI) | payer MEDICARE, MEDICAID ==
[~2018-05-02] MED LIST changes: +ASPIRIN CHEWABL81 MG PO
== END | disposition home or self-care (01) ==
LOC: US 14:21
DX: M79.89 Other specified soft tissue disorders (principal); R60.0 Localized edema; M79.662 Pain in left lower leg; M79.661 Pain in right lower leg

== ENCOUNTER 2018-05-31 16:04 | Emergency (ER) | payer MEDICARE, MEDICAID ==
[2018-05-31 16:05] VITALS: BP 139/63
[2018-05-31] MEDS ORDERED: PREDNISONE10 MG PO (17:21)
[2018-05-31] MEDS ORDERED: NORCO 5-325 TA1 EACH PO (18:22)
== END 2018-05-31 19:05 | disposition home or self-care (01) ==
LOC: ED 16:04
DX: M48.061 Spinal stenosis, lumbar region without neurogenic claudication (principal); M54.16 Radiculopathy, lumbar region; F17.200 Nicotine dependence, unspecified, uncomplicated; F12.10 Cannabis abuse, uncomplicated; Z88.0 Allergy status to penicillin; Z88.8 Allergy status to other drugs, medicaments and biological substances; Z88.5 Allergy status to narcotic agent; Z79.82 Long term (current) use of aspirin; Z79.899 Other long term (current) drug therapy; Z90.49 Acquired absence of other specified parts of digestive tract; Z98.51 Tubal ligation status

== ENCOUNTER 2019-05-01 14:24 | Inpatient (IN) | payer MEDICARE ==
[~2019-05-01] VITALS: Ht 172.7 cm; Wt 86.4 kg
--- NOTE | ~2019-05-01 | EKG ---
[place], [place] ELECTROCARDIOGRAM REPORT NAME: NONA ARSHAD UNIT #: [id number] ROOM: 519 DOCTOR: DAWIT DRAFT REPORT BIRTHDATE: [birth year] [facility] Test Date: 2019-05-01 Test Time: 19:56:26 Pat Name: NONA ARSHAD Department: Room: 519 Gender: F Combat Rifle Crewmember: Mely Saenz : 1965 Requested By: DONOVAN LEDER Order Number: [id number] Reading MD: Rico Peter MD Measurements Intervals [place] Rate: 93 P: 43 AL: 130 QRS: 20 QRSD: 103 T: 52 QT: 379 QTc: 472 Interpretive Statements Sinus rhythm Abnormal R-wave progression, early transition Borderline ST depression, lateral leads Baseline wander in lead(s) V5,V6 Electronically Signed On 05-03-2019 15:46:13 PDT by Rico Peter MD CM:EKGRPT:ELECTROCARDIOGRAM REPORT [id number] DONOVAN PASTOR DRAFT REPORT DONOVAN ELDER M.D.
--- NOTE | ~2019-05-01 | EKG ---
[place], [place] ELECTROCARDIOGRAM REPORT NAME: NONA ARSHAD UNIT #: [id number] ROOM: 519 DOCTOR: DAWIT DRAFT REPORT BIRTHDATE: [birth year] [facility] Test Date: 2019-05-01 Test Time: 16:46:32 Pat Name: NONA ARSHAD Department: Room: 519 Gender: F Revenue Coordinator: Ramandeep Mott : 1965 Requested By: DONOVAN ELDER Order Number: [id number] Reading MD: Rico Peter MD Measurements Intervals [place] Rate: 95 P: SD: QRS: 3 QRSD: 107 T: 48 QT: 347 QTc: 436 Interpretive Statements Normal sinus rhythm Abnormal R-wave progression, early transition No previous ECG available for comparison Electronically Signed On 05-03-2019 15:44:26 PDT by Rico Peter MD CM:EKGRPT:ELECTROCARDIOGRAM REPORT [id number] 1544 DONOVAN PASTOR DRAFT REPORT DONOVAN ELDER M.D.
--- NOTE | ~2019-05-01 | EKG ---
[place], [place] ELECTROCARDIOGRAM REPORT NAME: NONA ARSHAD UNIT #: [id number] ROOM: 519 DOCTOR: DAWIT DRAFT REPORT BIRTHDATE: [birth year] [facility] Test Date: 2019-05-01 Test Time: 14:29:09 Pat Name: NONA ARSHAD Department: Room: 519 Gender: F Shut Off Worker: Ramandeep Mott : 1965 Requested By: DONOVAN ELDER Order Number: [id number] Reading MD: Rico Peter MD Measurements Intervals [place] Rate: 97 P: 40 ID: 133 QRS: 2 QRSD: 102 T: 56 QT: 358 QTc: 455 Interpretive Statements Sinus rhythm Abnormal R-wave progression, early transition No previous ECG available for comparison Electronically Signed On 05-03-2019 15:42:35 PDT by Rico Peter MD CM:EKGRPT:ELECTROCARDIOGRAM REPORT [id number] 1542 DONOVAN PASTOR DRAFT REPORT DONOVAN ELDER M.D.
[2019-05-01 14:24] VITALS: BP 163/92
[~2019-05-01 14:24] MED LIST changes: +NORCO 5-325 TA1 EACH PO
[2019-05-01 14:56] LABS: BASO # 0.1 10*3/uL (0.0-0.1); EOS # 0.3 10*3/uL (0.0-0.4); EOS % 4.1 % (1.0-4.0); HEMATOCRIT 42.3 % (37.0-47.0); HEMOGLOBIN 15.4 g/dl (12.0-16.0); LYMPH % 25.2 % (27.0-41.0); MEAN CELL VOLUME 92.2 fl (81.0-99.0); MEAN CORPUSCULAR HGB 33.6 pg (27.0-31.0); MEAN CORPUSCULAR HGB CONC 36.4 g/dl (33.0-37.0); MEAN PLATELET VOLUME 8.7 fl (9.6-12.3); MONO # 0.4 10*3/uL (0.1-1.0); MONO % 5.1 % (3.0-9.0); NEUT % 64.1 % (47.0-73.0); PLATELET COUNT AUTOMATED 220 10*3/uL (130-400); RED BLOOD COUNT 4.59 10*6/uL (4.10-5.10); RED CELL DISTRI WIDTH 11.9 % (0-14.5); WHITE BLOOD COUNT 7.8 10*3/uL (4.8-10.8)
[2019-05-01 15:07] LABS: ACT PARTIAL THROMBO TIME 23.9 SECONDS (20.0-32.1); INTERNATIONAL NORM RATIO 0.9 (2.0-3.5)
[2019-05-01 15:14] LABS: ALBUMIN 3.6 gm/dl (3.1-4.5); ALKALINE PHOSPHATASE 156 U/L (45-117); BUN 16 mg/dl (7-24); CHLORIDE 103 mmol/L (98-107); CREATININE 0.92 mg/dL (0.55-1.02); SGOT/AST 31 IU/L (3-35); SGPT/ALT 41 U/L (12-78); SODIUM 138 mmol/L (136-145); TOTAL PROTEIN 7.5 gm/dL (6.4-8.2)
[2019-05-01 15:15] LABS: TROPONIN I < 0.015 ng/ml (<0.045)
[2019-05-01 15:20] LABS: BILIRUBIN NEGATIVE (NEGATIVE); BLOOD NEGATIVE (NEGATIVE); CLARITY CLEAR (CLEAR); COLOR YELLOW (YELLOW); GLUCOSE 3+ (NEGATIVE); KETONE TRACE (NEGATIVE); LEUKO ESTERASE NEGATIVE (NEGATIVE); NITRITE NEGATIVE (NEGATIVE); UROBILINOGEN 0.2 E.U./dl (0.2-1.0)
[2019-05-01 15:29] LABS: BACTERIA 1+; EPITHELIAL CELLS 0-2; YEAST TRACE
[2019-05-01 16:00] VITALS: BP 154/54
[2019-05-01] MEDS ORDERED: BYDUREON P2 MG/0.65 SQ (18:24)
[2019-05-01] MEDS ORDERED: CYCLOBENZAPRINE5 M3 PO (18:24)
[2019-05-01] MEDS ORDERED: DIFLUCAN150 MG PO (18:25)
[2019-05-01] MEDS ORDERED: IBU800 M1 PO (18:26)
[2019-05-01] MEDS ORDERED: PREVACID15 M1 PO (18:26)
[2019-05-01] MEDS ORDERED: GLUCOPHAGE500 M1 PO (18:27)
[2019-05-01] MEDS ORDERED: ONGLYZA5 MG PO (18:28)
[2019-05-01] MEDS ORDERED: SEROQUEL50 MG PO (18:33)
[2019-05-01] MEDS ORDERED: VITAMIN D50000 UNIT PO (18:34)
[2019-05-01] MEDS ORDERED: VRAYLAR6 MG PO (18:35)
[2019-05-01 20:00] VITALS: BP 168/95
[2019-05-01 21:59] VITALS: BP 164/86
[2019-05-01 23:06] VITALS: BP 130/74
[2019-05-02] VITALS: BP 122/77
[2019-05-02 06:05] LABS: BASO # 0.1 10*3/uL (0.0-0.1); EOS # 0.3 10*3/uL (0.0-0.4); EOS % 5.3 % (1.0-4.0); HEMATOCRIT 38.7 % (37.0-47.0); HEMOGLOBIN 13.7 g/dl (12.0-16.0); LYMPH # 2.3 10*3/uL (1.3-4.4); LYMPH % 37.2 % (27.0-41.0); MEAN CELL VOLUME 94.2 fl (81.0-99.0); MEAN CORPUSCULAR HGB 33.3 pg (27.0-31.0); MEAN CORPUSCULAR HGB CONC 35.4 g/dl (33.0-37.0); MEAN PLATELET VOLUME 8.8 fl (9.6-12.3); MONO # 0.4 10*3/uL (0.1-1.0); MONO % 6.2 % (3.0-9.0); NEUT # 3.1 10*3/uL (2.3-7.9); PLATELET COUNT AUTOMATED 201 10*3/uL (130-400); RED BLOOD COUNT 4.11 10*6/uL (4.10-5.10); WHITE BLOOD COUNT 6.3 10*3/uL (4.8-10.8)
[2019-05-02 06:28] LABS: BUN 16 mg/dl (7-24); CHLORIDE 110 mmol/L (98-107); POTASSIUM 3.7 mmol/L (3.5-5.1); SODIUM 143 mmol/L (136-145)
[2019-05-02 06:33] LABS: CREATININE 0.85 mg/dL (0.55-1.02); PHOSPHOROUS 3.9 mg/dL (2.5-4.9)
[2019-05-02 07:45] VITALS: BP 142/80
[2019-05-02] MEDS ORDERED: ZITHROMAX250 MG PO (08:36)
== END 2019-05-02 11:00 | disposition home or self-care (01) | DRG 872 ==
LOC: ED 14:24 → 5E 16:48 → EDHOLD 16:48 → 5E 17:10
PROVIDERS: Emergency Medicine; Physician Assistant; Student in an Organized Health Care Education/Training Program; ADMIT Internal Medicine
DX: A41.9 Sepsis, unspecified organism (principal); E44.0 Moderate protein-calorie malnutrition; N30.00 Acute cystitis without hematuria; I24.9 Acute ischemic heart disease, unspecified; R07.89 Other chest pain; R09.1 Pleurisy; R74.8 Abnormal levels of other serum enzymes; F31.9 Bipolar disorder, unspecified; K21.9 Gastro-esophageal reflux disease without esophagitis; E11.65 Type 2 diabetes mellitus with hyperglycemia; E78.5 Hyperlipidemia, unspecified; I10 Essential (primary) hypertension; F41.1 Generalized anxiety disorder; J45.909 Unspecified asthma, uncomplicated; M48.00 Spinal stenosis, site unspecified; E55.9 Vitamin D deficiency, unspecified; E53.8 Deficiency of other specified B group vitamins; R42 Dizziness and giddiness; Z88.6 Allergy status to analgesic agent; Z88.5 Allergy status to narcotic agent; Z91.09 Other allergy status, other than to drugs and biological substances; Z88.0 Allergy status to penicillin; Z88.7 Allergy status to serum and vaccine; Z90.49 Acquired absence of other specified parts of digestive tract; Z90.79 Acquired absence of other genital organ(s); Z90.722 Acquired absence of ovaries, bilateral; Z98.51 Tubal ligation status; Z82.5 Family history of asthma and other chronic lower respiratory diseases; Z80.8 Family history of malignant neoplasm of other organs or systems; Z82.49 Family history of ischemic heart disease and other diseases of the circulatory system; Z83.3 Family history of diabetes mellitus; Z81.8 Family history of other mental and behavioral disorders; Z79.82 Long term (current) use of aspirin; Z79.899 Other long term (current) drug therapy; Z68.28 Body mass index [BMI] 28.0-28.9, adult

== ENCOUNTER 2019-06-06 14:57 | Emergency (ER) | payer MEDICARE ==
[~2019-06-06] VITALS: Ht 175.2 cm; Wt 87.1 kg
--- NOTE | ~2019-06-06 | EKG ---
[place], [place] ELECTROCARDIOGRAM REPORT NAME: NONA ARSHAD UNIT #: [id number] ROOM: DOCTOR: EPIPHANY DRAFT REPORT BIRTHDATE: [birth year] [facility] Test Date: 2019-06-06 Test Time: 16:09:17 Pat Name: NONA ARSHAD Department: Room: [facility] Gender: F Loan Documents Closer: Jojo Collazo : 1965 Requested By: RG CALDERÓN Order Number: [id number] Reading MD: Robert Pitts MD Measurements Intervals [place] Rate: 97 P: 38 IA: 133 QRS: 15 QRSD: 91 T: 61 QT: 356 QTc: 452 Interpretive Statements Sinus rhythm Abnormal R-wave progression, early transition Compared to ECG 05/01/2019 19:56:26 ST (T wave) deviation no longer present Electronically Signed On 06-07-2019 6:22:45 PDT by Robert Pitts MD CM:EKGRPT:ELECTROCARDIOGRAM REPORT [id number] 0622 RG BUITRAGO DRAFT REPORT RG CALDERÓN DO
[~2019-06-06 14:57] MED LIST changes: +BYDUREON P2 MG/0.65 SQ; +CYCLOBENZAPRINE5 M3 PO; +DIFLUCAN150 MG PO; +GLUCOPHAGE500 M1 PO; +IBU800 M1 PO; +ONGLYZA5 MG PO; +PREVACID15 M1 PO; +SEROQUEL50 MG PO; +VITAMIN D50000 UNIT PO; +VRAYLAR6 MG PO; +ZITHROMAX250 MG PO
[2019-06-06 16:03] LABS: BILIRUBIN NEGATIVE (NEGATIVE); BLOOD NEGATIVE (NEGATIVE); CLARITY CLEAR (CLEAR); COLOR YELLOW (YELLOW); GLUCOSE 3+ (NEGATIVE); KETONE NEGATIVE (NEGATIVE); LEUKO ESTERASE NEGATIVE (NEGATIVE); NITRITE NEGATIVE (NEGATIVE); PH 5.5 (5.0-9.0); SPECIFIC GRAVITY <= 1.005 (1.005-1.030); UROBILINOGEN 0.2 E.U./dl (0.2-1.0)
[2019-06-06 16:18] LABS: BACTERIA TRACE; WBC 0-2 wbc/hpf (0-5)
[2019-06-06 16:20] LABS: BASO % 0.5 % (0.0-1.0); EOS # 0.2 10*3/uL (0.0-0.4); EOS % 1.9 % (1.0-4.0); HEMATOCRIT 44.2 % (37.0-47.0); HEMOGLOBIN 15.8 g/dl (12.0-16.0); LYMPH # 1.4 10*3/uL (1.3-4.4); MEAN CELL VOLUME 92.5 fl (81.0-99.0); MEAN CORPUSCULAR HGB 33.1 pg (27.0-31.0); MEAN CORPUSCULAR HGB CONC 35.7 g/dl (33.0-37.0); MEAN PLATELET VOLUME 9.1 fl (9.6-12.3); MONO # 0.4 10*3/uL (0.1-1.0); MONO % 4.8 % (3.0-9.0); NEUT # 6.3 10*3/uL (2.3-7.9); NEUT % 75.6 % (47.0-73.0); PLATELET COUNT AUTOMATED 318 10*3/uL (130-400); RED BLOOD COUNT 4.78 10*6/uL (4.10-5.10); RED CELL DISTRI WIDTH 11.6 % (0-14.5); WHITE BLOOD COUNT 8.4 10*3/uL (4.8-10.8)
[2019-06-06 16:30] LABS: ACT PARTIAL THROMBO TIME 25.3 SECONDS (20.0-32.1); INTERNATIONAL NORM RATIO 0.9 (2.0-3.5)
[2019-06-06 16:45] LABS: BUN 14 mg/dl (7-24); CHLORIDE 102 mmol/L (98-107); CREATININE 0.85 mg/dL (0.55-1.02); LIPASE 154 U/L (73-393); PHOSPHOROUS 2.7 mg/dL (2.5-4.9); POTASSIUM 3.9 mmol/L (3.5-5.1); SGOT/AST 27 IU/L (3-35); SGPT/ALT 38 U/L (12-78); SODIUM 134 mmol/L (136-145); TOTAL PROTEIN 8.2 gm/dL (6.4-8.2)
[2019-06-06 16:46] LABS: ALKALINE PHOSPHATASE 142 U/L (45-117)
[2019-06-06 16:47] LABS: TROPONIN I < 0.015 ng/ml (<0.045)
[2019-06-06 17:15] VITALS: BP 154/93
== END 2019-06-06 18:13 | disposition home or self-care (01) ==
LOC: ED 14:57
PROVIDERS: Emergency Medicine
DX: R25.1 Tremor, unspecified (principal); R53.1 Weakness; M79.604 Pain in right leg; M79.605 Pain in left leg; J45.909 Unspecified asthma, uncomplicated; E11.9 Type 2 diabetes mellitus without complications; K21.9 Gastro-esophageal reflux disease without esophagitis; E78.5 Hyperlipidemia, unspecified; I10 Essential (primary) hypertension; Z88.8 Allergy status to other drugs, medicaments and biological substances; Z91.048 Other nonmedicinal substance allergy status; Z88.5 Allergy status to narcotic agent; Z88.7 Allergy status to serum and vaccine; Z88.0 Allergy status to penicillin; Z88.6 Allergy status to analgesic agent; Z79.899 Other long term (current) drug therapy; Z90.49 Acquired absence of other specified parts of digestive tract

== ENCOUNTER 2019-08-02 12:51 | Inpatient (IN) | payer MEDICARE ==
[~2019-08-02] VITALS: Ht 172.7 cm; Wt 86.7 kg
[2019-08-02 13:29] LABS: BASO # 0.1 10*3/uL (0.0-0.1); BASO % 0.6 % (0.0-1.0); EOS # 0.2 10*3/uL (0.0-0.4); EOS % 1.3 % (1.0-4.0); HEMATOCRIT 42.2 % (37.0-47.0); HEMOGLOBIN 15.2 g/dl (12.0-16.0); LYMPH # 2.2 10*3/uL (1.3-4.4); LYMPH % 18.9 % (27.0-41.0); MEAN CELL VOLUME 91.9 fl (81.0-99.0); MEAN CORPUSCULAR HGB 33.1 pg (27.0-31.0); MEAN PLATELET VOLUME 9.2 fl (9.6-12.3); MONO # 0.6 10*3/uL (0.1-1.0); MONO % 5.1 % (3.0-9.0); NEUT # 8.4 10*3/uL (2.3-7.9); NEUT % 73.6 % (47.0-73.0); PLATELET COUNT AUTOMATED 283 10*3/uL (130-400); RED BLOOD COUNT 4.59 10*6/uL (4.10-5.10); RED CELL DISTRI WIDTH 12.4 % (0-14.5); WHITE BLOOD COUNT 11.5 10*3/uL (4.8-10.8)
[2019-08-02 13:43] LABS: ACT PARTIAL THROMBO TIME 26.2 SECONDS (20.0-32.1); INTERNATIONAL NORM RATIO 0.9 (2.0-3.5)
[2019-08-02 13:44] VITALS: BP 121/85
[2019-08-02 13:45] LABS: ALBUMIN 3.5 gm/dl (3.1-4.5); ALKALINE PHOSPHATASE 138 U/L (45-117); BUN 10 mg/dl (7-24); CHLORIDE 100 mmol/L (98-107); CREATININE 1.06 mg/dL (0.55-1.02); POTASSIUM 3.9 mmol/L (3.5-5.1); SGOT/AST 17 IU/L (3-35); SGPT/ALT 29 U/L (12-78); SODIUM 131 mmol/L (136-145); TOTAL PROTEIN 7.3 gm/dL (6.4-8.2)
[2019-08-02 13:49] LABS: TROPONIN I 0.352 ng/ml (<0.045)
--- NOTE | 2019-08-02 13:50 | NUR ---
CRITICAL LAB: TROPONIN I OF 0.352. DR ELDER NOTIFIED
[2019-08-02 14:50] VITALS: BP 117/83
[2019-08-02 14:57] LABS: BILIRUBIN NEGATIVE (NEGATIVE); BLOOD NEGATIVE (NEGATIVE); CLARITY CLEAR (CLEAR); COLOR YELLOW (YELLOW); GLUCOSE 3+ (NEGATIVE); KETONE TRACE (NEGATIVE); LEUKO ESTERASE NEGATIVE (NEGATIVE); NITRITE NEGATIVE (NEGATIVE); PH 5.5 (5.0-9.0); UROBILINOGEN 0.2 E.U./dl (0.2-1.0)
[2019-08-02 15:07] LABS: RBC 0-2 rbc/hpf (0-2)
[2019-08-02 15:37] VITALS: BP 123/78
--- NOTE | 2019-08-02 16:08 | NUR ---
PT GIVEN FOOD PER REQUEST
--- NOTE | 2019-08-02 16:53 | NUR ---
PT RESTING COMFORTABLY IN BED. STATES SHE IS NO LONGER SOB. SHE IS AWARE SHE IS GETTING ADMITTED. WAITING ON A BED.
[2019-08-02 17:40] VITALS: BP 137/78
--- NOTE | 2019-08-02 17:40 | NUR ---
A 54, admitted to 5E, under the services of RAMONA Rashid DO with a diagnosis of TACHYCARDIA, ELEVATED TROPONIN. Chief complaint is SHORTNESS OF BREATH. Patient arrived via bed from ER. Monitor applied. Initial assessment completed. Vital signs taken and recorded. RAMONA RASHID DO notified of admission to the unit. Orders received. See assessment for past medical history, medications and allergies. Patient and/or family oriented to unit. [address] visitation policy reviewed. Clothing/patient valuable form completed. CLAUDIA MCLAUGHLIN
--- NOTE | 2019-08-02 17:50 | NUR ---
IN TO SEE PT.
[2019-08-02] MEDS ORDERED: TRINTELLIX10 MG PO (18:00)
[2019-08-02] MEDS ORDERED: CENTRUM SILVER1 EAC2 PO (18:01)
[2019-08-02] MEDS ORDERED: NATURE'S BLEND F1 MG PO (18:01)
[2019-08-02] MEDS ORDERED: OMEPRAZOLE20 M2 PO (18:01)
--- NOTE | 2019-08-02 18:02 | NUR ---
[facility] CALLED, MED REC UPDATED. DR BLUE NOTIFIED.
--- NOTE | 2019-08-02 18:13 | NUR ---
DR JAY CALLED AND NOTIFIED OF CONSULT, RECENT LABS, PT HISTORY AND LAST ECHO DONE IN 2018 REVIEWED. ORDERS RECEIVED TO KEEP PT NPO AFTER MIDNIGHT AND GROUP WILL SEE HER IN THE MORNING. PT NOTIFIED.
--- NOTE | 2019-08-02 19:57 | NUR ---
CALLED DR. ZELAYA ANSWERING SERVICE REGARDING INCREASED TROPONIN OF 0.449.
[2019-08-02 20:00] VITALS: BP 131/74
--- NOTE | 2019-08-02 20:03 | NUR ---
DR. JAY NOTIFIED OF TROPONIN OF 0.449. NO NEW ORDERS RECEIVED.
--- NOTE | 2019-08-02 21:11 | NUR ---
PATIENT GIVEN ZANAX FOR C/O ANXIETY. WILL MONITOR FOR EFFECTIVENESS.
--- NOTE | 2019-08-02 21:55 | NUR ---
PER PATIENT XANAX EFFECTIVE.
[2019-08-03 02:00] VITALS: BP 104/58
--- NOTE | 2019-08-03 03:12 | NUR ---
Shift chart check completed.
--- NOTE | 2019-08-03 04:41 | NUR ---
PATIENT SLEEPING QUIETLY IN BED. NO ACUTE DISTRESS NOTED. CALL LIGHT WITHIN REACH.
[2019-08-03 06:15] LABS: BASO # 0.1 10*3/uL (0.0-0.1); BASO % 0.8 % (0.0-1.0); EOS # 0.4 10*3/uL (0.0-0.4); EOS % 6.5 % (1.0-4.0); HEMATOCRIT 38.6 % (37.0-47.0); HEMOGLOBIN 13.8 g/dl (12.0-16.0); LYMPH # 2.3 10*3/uL (1.3-4.4); LYMPH % 35.8 % (27.0-41.0); MEAN CELL VOLUME 92.3 fl (81.0-99.0); MEAN CORPUSCULAR HGB CONC 35.8 g/dl (33.0-37.0); MEAN PLATELET VOLUME 8.9 fl (9.6-12.3); MONO # 0.4 10*3/uL (0.1-1.0); MONO % 5.9 % (3.0-9.0); NEUT # 3.2 10*3/uL (2.3-7.9); NEUT % 50.7 % (47.0-73.0); PLATELET COUNT AUTOMATED 236 10*3/uL (130-400); RED BLOOD COUNT 4.18 10*6/uL (4.10-5.10); RED CELL DISTRI WIDTH 12.5 % (0-14.5); WHITE BLOOD COUNT 6.3 10*3/uL (4.8-10.8)
[2019-08-03 06:46] LABS: BUN 11 mg/dl (7-24); CHLORIDE 107 mmol/L (98-107); CHOLESTEROL 160 mg/dL (<200); CREATININE 0.71 mg/dL (0.55-1.02); POTASSIUM 3.5 mmol/L (3.5-5.1); SODIUM 139 mmol/L (136-145); TRIGLYCERIDES 590 mg/dl (<150)
[2019-08-03 06:54] LABS: FREE T4 1.04 ng/dl (0.76-1.46); HDL CHOLESTEROL 25 mg/dl (40-60)
[2019-08-03 06:56] LABS: ACT PARTIAL THROMBO TIME 24.8 SECONDS (20.0-32.1); INTERNATIONAL NORM RATIO 0.9 (2.0-3.5)
[2019-08-03 07:32] LABS: VITAMIN D, 25-HYDROXY 42.6 ng/mL (30-100)
[2019-08-03 09:01] VITALS: BP 118/78
--- NOTE | 2019-08-03 11:01 | NUR ---
PHYSICAL THERAPY Physical therapy evaluation attempted, screen completed. Patient independent in room and does not feel she needs PT at this time. Return home upon discharge. Discharge PT order. Thank you, Deisy Negrete, SPT Chayo Jeffrey,PT,DPT
--- NOTE | 2019-08-03 11:03 | NUR ---
Occupational therapy orders received and chart reviewed. Patient admitted for tachycardia and elevated troponin. Patient has a PMH including SVT with ablation, DM, depression, anxiety, HLD, HTN. Patient stated she has been up and moving in the room without assist, has completed indepedent ADLs, and has good upper extremity strength. Patient stated she does not need OT services at this time. Patient OT orders to be discharged. Thank you for the referral. Simin Almanzar, OTR/L
--- NOTE | 2019-08-03 11:42 | NUR ---
IV TO LEFT FOREARM REMOVED AFTER RED & TENDER WITH BEGINNING OF INJECTION FOR STRESS TEST.
[2019-08-03 12:00] VITALS: BP 136/76
--- NOTE | 2019-08-03 13:04 | NUR ---
INFORMED SIGNED CONSENT OBTAINED FOR LEXISCAN STRESS TEST WITH DR JAY. RESTING EKG NSR HR 87 BP 128/74. PULSE OX 99% LUNGS CLEAR. PT COMPLETED ONE MINUTE OF A LEXISCAN PROTOCOL WITH PT RECEIVING LEXISCAN 0.4MG IV OVER 10 SECONDS. NO ARRHYTHMIAS OR ST CHANGES NOTED. PT C/O FEELING WHOOZY, WARM AND A HEADACHE WITH INJECTION. LAST RECOVERY HR 0F 105 BP 126/68. PT IN STABLE CONDITION, AWAITING NUCLEAR IMAGES.
[2019-08-03 16:00] VITALS: BP 149/82
[2019-08-03 20:00] VITALS: BP 149/103
--- NOTE | 2019-08-03 21:30 | NUR ---
PT.'S DAUGHTER, JIGAR HERE TO VISIT HER MOTHER. DAUGHTER STATES THAT HER MOTHER WANTS TO LEAVE AMA. BOTH DAUGHTER & I SPOKE TO PATIENT & PATIENT AGREED TO REMAIN IN HOSPITAL OVERNIGHT. CALL LIGHT WITHIN PT'S REACH. NO DISTRESS NOTED.
--- NOTE | 2019-08-03 22:00 | NUR ---
BLOOD SUGAR 234; COVERAGE PER EMAR. TOOK PT. BOXED LUNCH & MILK. PT. HAD MULTIPLE COMPLAINTS REGARDING TO HER TRASH NOT BEING EMPTIED & BATHROOM NOT BEING CLEANED. THIS RN EMPTIED HER TRASH & HOUSECLEANING CAME & CLEANED THE BATHROOM & EMPTIED THE TRASH IN THE BATHROOM.
[2019-08-04] VITALS: BP 148/87
--- NOTE | 2019-08-04 | NUR ---
RESTING IN BED WITH EYES CLOSED; MEDICATIONS GIVEN EARLIER APPARENTLY EFFECTIVE. CALL LIGHT WITHIN REACH.
--- NOTE | 2019-08-04 05:54 | NUR ---
BLOOD SUGAR 242; COVERAGE PER EMAR.
[2019-08-04] MEDS ORDERED: METOPROLOL SUCC25 M2 PO (09:35)
--- NOTE | 2019-08-04 12:00 | NUR ---
PATIENT IV AND HEART MONITOR DISCONTINUED FOR DISCHARGED. PATIENT AWARE OF DISCHARGE INSTRUCTIONS AND DISCHARGE PAPERS SIGNED.
--- NOTE | 2019-08-04 12:15 | NUR ---
Discharge instructions reviewed with patient/family. Patient receptive and verbalizes understanding. Follow-up care arranged. Written instructions given to patient/family. DISCHARGED HOME WITH . AMELIA PELAEZ
== END 2019-08-04 12:15 | disposition home or self-care (01) | DRG 281 ==
LOC: ED 12:51 → 5E 16:35 → EDHOLD 16:35 → 5E 17:06
PROVIDERS: Emergency Medicine; Internal Medicine; ADMIT Internal Medicine
PROC: 4A02XM4 Measurement of Cardiac Total Activity, External Approach (ICD-10-PCS; principal; 2019-08-03)
PROC: 3E073KZ Introduction of Other Diagnostic Substance into Coronary Artery, Percutaneous Approach (ICD-10-PCS; principal; 2019-08-03)
DX: I21.A1 Myocardial infarction type 2 (principal); E87.1 Hypo-osmolality and hyponatremia; R00.0 Tachycardia, unspecified; F41.1 Generalized anxiety disorder; F31.9 Bipolar disorder, unspecified; E78.5 Hyperlipidemia, unspecified; E13.65 Other specified diabetes mellitus with hyperglycemia; K21.9 Gastro-esophageal reflux disease without esophagitis; D72.829 Elevated white blood cell count, unspecified; M48.00 Spinal stenosis, site unspecified; D72.9 Disorder of white blood cells, unspecified; D72.810 Lymphocytopenia; J45.909 Unspecified asthma, uncomplicated; I11.9 Hypertensive heart disease without heart failure; I35.1 Nonrheumatic aortic (valve) insufficiency; Z88.8 Allergy status to other drugs, medicaments and biological substances; Z88.0 Allergy status to penicillin; Z88.7 Allergy status to serum and vaccine; Z88.5 Allergy status to narcotic agent; Z87.440 Personal history of urinary (tract) infections; Z90.49 Acquired absence of other specified parts of digestive tract; Z88.6 Allergy status to analgesic agent; Z98.51 Tubal ligation status; Z90.79 Acquired absence of other genital organ(s); Z90.722 Acquired absence of ovaries, bilateral; Z82.5 Family history of asthma and other chronic lower respiratory diseases; Z83.3 Family history of diabetes mellitus; Z82.49 Family history of ischemic heart disease and other diseases of the circulatory system; Z81.8 Family history of other mental and behavioral disorders; Z80.8 Family history of malignant neoplasm of other organs or systems; Z79.899 Other long term (current) drug therapy

== ENCOUNTER 2019-08-15 14:36 | Emergency (ER) | payer MEDICARE ==
[~2019-08-15] VITALS: Ht 172.7 cm; Wt 84.8 kg
[2019-08-15 14:36] VITALS: BP 141/88
[~2019-08-15 14:36] MED LIST changes: +CENTRUM SILVER1 EAC2 PO; +NATURE'S BLEND F1 MG PO; +OMEPRAZOLE20 M2 PO; +TRINTELLIX10 MG PO
[2019-08-15 15:37] LABS: BASO # 0.1 10*3/uL (0.0-0.1); BASO % 0.6 % (0.0-1.0); EOS # 0.3 10*3/uL (0.0-0.4); EOS % 2.7 % (1.0-4.0); HEMATOCRIT 45.8 % (37.0-47.0); HEMOGLOBIN 16.3 g/dl (12.0-16.0); LYMPH # 1.5 10*3/uL (1.3-4.4); LYMPH % 15.5 % (27.0-41.0); MEAN CELL VOLUME 91.8 fl (81.0-99.0); MEAN CORPUSCULAR HGB 32.7 pg (27.0-31.0); MEAN CORPUSCULAR HGB CONC 35.6 g/dl (33.0-37.0); MEAN PLATELET VOLUME 8.8 fl (9.6-12.3); MONO # 0.5 10*3/uL (0.1-1.0); MONO % 5.8 % (3.0-9.0); NEUT # 7.1 10*3/uL (2.3-7.9); NEUT % 75.1 % (47.0-73.0); PLATELET COUNT AUTOMATED 278 10*3/uL (130-400); RED BLOOD COUNT 4.99 10*6/uL (4.10-5.10); RED CELL DISTRI WIDTH 12.1 % (0-14.5); WHITE BLOOD COUNT 9.4 10*3/uL (4.8-10.8)
[2019-08-15 15:51] LABS: ALBUMIN 3.9 gm/dl (3.1-4.5); ALKALINE PHOSPHATASE 152 U/L (45-117); BUN 17 mg/dl (7-24); CHLORIDE 100 mmol/L (98-107); CREATININE 0.98 mg/dL (0.55-1.02); LIPASE 187 U/L (73-393); POTASSIUM 3.9 mmol/L (3.5-5.1); SGOT/AST 12 IU/L (3-35); SGPT/ALT 21 U/L (12-78); SODIUM 135 mmol/L (136-145); TOTAL PROTEIN 8.1 gm/dL (6.4-8.2)
[2019-08-15 16:20] LABS: BILIRUBIN NEGATIVE (NEGATIVE); BLOOD NEGATIVE (NEGATIVE); CLARITY SL CLOUDY (CLEAR); COLOR YELLOW (YELLOW); GLUCOSE 2+ (NEGATIVE); KETONE NEGATIVE (NEGATIVE); LEUKO ESTERASE 1+ (NEGATIVE); NITRITE NEGATIVE (NEGATIVE); PH 5.5 (5.0-9.0); SPECIFIC GRAVITY 1.015 (1.005-1.030); UROBILINOGEN 0.2 E.U./dl (0.2-1.0)
[2019-08-15 16:35] LABS: BACTERIA 2+; WBC 21-30 wbc/hpf (0-5)
[2019-08-15] MEDS ORDERED: MACROBID100 M1 PO (17:14)
[2019-08-15] MEDS ORDERED: ZOFRAN4 MG PO (17:14)
== END 2019-08-15 17:45 | disposition home or self-care (01) ==
LOC: ED 14:36
PROVIDERS: Physician Assistant
DX: N39.0 Urinary tract infection, site not specified (principal); R11.2 Nausea with vomiting, unspecified; Z90.49 Acquired absence of other specified parts of digestive tract; Z88.8 Allergy status to other drugs, medicaments and biological substances; Z88.5 Allergy status to narcotic agent; Z88.6 Allergy status to analgesic agent; Z88.0 Allergy status to penicillin; Z88.7 Allergy status to serum and vaccine; Z79.899 Other long term (current) drug therapy

== ENCOUNTER 2019-11-03 14:58 | Emergency (ER) | payer MEDICARE ==
[~2019-11-03] VITALS: Ht 170.1 cm; Wt 86.2 kg
[~2019-11-03 14:58] MED LIST changes: +MACROBID100 M1 PO
[2019-11-03 15:02] VITALS: BP 144/107
[2019-11-03] MEDS ORDERED: METHOCARBAMOL500 M1 PO ×2 (16:13→16:31)
[2019-11-03] MEDS ORDERED: MEDROL DOSEPAK4 MG PO ×2 (16:13→16:31)
== END 2019-11-03 16:34 | disposition home or self-care (01) ==
LOC: ED 14:58
DX: M54.42 Lumbago with sciatica, left side (principal); E11.9 Type 2 diabetes mellitus without complications; I10 Essential (primary) hypertension; J45.909 Unspecified asthma, uncomplicated; K21.9 Gastro-esophageal reflux disease without esophagitis; Z88.8 Allergy status to other drugs, medicaments and biological substances; Z88.6 Allergy status to analgesic agent; Z88.0 Allergy status to penicillin; Z88.7 Allergy status to serum and vaccine; Z79.899 Other long term (current) drug therapy

== ENCOUNTER 2020-03-03 19:29 | Emergency (ER) | payer MEDICARE ==
[~2020-03-03] VITALS: Ht 172.7 cm; Wt 84.8 kg
[~2020-03-03 19:29] MED LIST changes: +METHOCARBAMOL500 M1 PO
[2020-03-03] MEDS ORDERED: PREDNISONE20 M1 PO (20:55)
[2020-03-03 21:30] VITALS: BP 146/78
== END 2020-03-03 21:06 | disposition home or self-care (01) ==
LOC: ED 19:29
DX: M75.82 Other shoulder lesions, left shoulder (principal); E11.9 Type 2 diabetes mellitus without complications; F32.9 Major depressive disorder, single episode, unspecified; F41.9 Anxiety disorder, unspecified; I10 Essential (primary) hypertension; J45.909 Unspecified asthma, uncomplicated; F17.200 Nicotine dependence, unspecified, uncomplicated; Z88.8 Allergy status to other drugs, medicaments and biological substances; Z88.5 Allergy status to narcotic agent; Z79.899 Other long term (current) drug therapy; Z90.49 Acquired absence of other specified parts of digestive tract

== ENCOUNTER → 2020-08-20 | Outpatient (CLI) | payer MEDICARE ==
[~2020-08-20] MED LIST changes: +CYCLOBENZAPRINE10 MG PO; +MECLIZINE HYD12.5 MG PO; +NYSTOP60 GM T; +PREDNISONE20 M1 PO; +VRAYLAR4.5 MG PO; +XANAX0.5 MG PO
== END | disposition home or self-care (01) ==
LOC: MRI 07-24 13:00
PROVIDERS: ATTEND Family Medicine
DX: M75.92 Shoulder lesion, unspecified, left shoulder (principal)

== ENCOUNTER 2021-07-10 22:01 | Emergency (ER) | payer MEDICARE ==
[~2021-07-10] VITALS: Ht 172.7 cm; Wt 81.2 kg
[2021-07-10 23:06] VITALS: BP 152/97
[2021-07-10 23:51] LABS: BASO # 0.1 10*3/uL (0.0-0.1); BASO % 0.7 % (0.0-1.0); EOS # 0.1 10*3/uL (0.0-0.4); EOS % 1.6 % (1.0-4.0); HEMATOCRIT 42.3 % (37.0-47.0); LYMPH # 1.9 10*3/uL (1.3-4.4); LYMPH % 23.3 % (27.0-41.0); MEAN CELL VOLUME 88.7 fl (81.0-99.0); MEAN CORPUSCULAR HGB 32.1 pg (27.0-31.0); MEAN CORPUSCULAR HGB CONC 36.2 g/dl (33.0-37.0); MEAN PLATELET VOLUME 8.6 fl (9.6-12.3); MONO # 0.6 10*3/uL (0.1-1.0); MONO % 6.8 % (3.0-9.0); NEUT # 5.6 10*3/uL (2.3-7.9); NEUT % 67.4 % (47.0-73.0); PLATELET COUNT AUTOMATED 238 10*3/uL (130-400); RED BLOOD COUNT 4.77 10*6/uL (4.10-5.10); RED CELL DISTRI WIDTH 11.8 % (0-14.5); WHITE BLOOD COUNT 8.3 10*3/uL (4.8-10.8)
[2021-07-11 00:06] LABS: ALBUMIN 3.5 gm/dl (3.1-4.5); ALKALINE PHOSPHATASE 135 U/L (45-117); BUN 16 mg/dl (7-24); CHLORIDE 101 mmol/L (98-107); CREATININE 0.81 mg/dL (0.55-1.02); LIPASE 105 U/L (73-393); POTASSIUM 3.7 mmol/L (3.5-5.1); SGOT/AST 18 IU/L (3-35); SGPT/ALT 25 U/L (12-78); SODIUM 133 mmol/L (136-145); TOTAL PROTEIN 7.3 gm/dL (6.4-8.2)
== END 2021-07-11 02:45 | disposition home or self-care (01) ==
LOC: ED 22:01
PROVIDERS: Emergency Medicine
DX: K57.30 Diverticulosis of large intestine without perforation or abscess without bleeding (principal); R11.10 Vomiting, unspecified; R19.7 Diarrhea, unspecified; F31.9 Bipolar disorder, unspecified; I10 Essential (primary) hypertension; F41.9 Anxiety disorder, unspecified; J45.909 Unspecified asthma, uncomplicated; K21.9 Gastro-esophageal reflux disease without esophagitis; E78.5 Hyperlipidemia, unspecified; E11.40 Type 2 diabetes mellitus with diabetic neuropathy, unspecified; I25.2 Old myocardial infarction; Z88.0 Allergy status to penicillin; Z88.5 Allergy status to narcotic agent; Z88.7 Allergy status to serum and vaccine; Z79.899 Other long term (current) drug therapy; Z90.49 Acquired absence of other specified parts of digestive tract; Z98.51 Tubal ligation status

== ENCOUNTER → 2021-10-19 | Outpatient (CLI) | payer MEDICARE | END | disposition home or self-care (01) | LOC: RAD 17:28 | PROVIDERS: ATTEND Family Medicine | DX: M51.06 Intervertebral disc disorders with myelopathy, lumbar region (principal); M48.061 Spinal stenosis, lumbar region without neurogenic claudication ==

== ENCOUNTER 2022-08-18 17:14 | Inpatient (IN) | payer MEDICARE ==
[~2022-08-18] VITALS: Wt 86.2 kg
[2022-08-18 17:25] VITALS: BP 115/87
[2022-08-18 17:37] LABS: BASO # 0.1 10*3/uL (0.0-0.1); BASO % 0.5 % (0.0-1.0); EOS # 0.1 10*3/uL (0.0-0.4); EOS % 1.1 % (1.0-4.0); HEMATOCRIT 46.1 % (37.0-47.0); LYMPH # 2.9 10*3/uL (1.3-4.4); LYMPH % 30.1 % (27.0-41.0); MEAN CELL VOLUME 86.8 fl (81.0-99.0); MEAN CORPUSCULAR HGB CONC 36.9 g/dl (33.0-37.0); MEAN PLATELET VOLUME 8.7 fl (9.6-12.3); MONO # 0.5 10*3/uL (0.1-1.0); MONO % 5.4 % (3.0-9.0); NEUT % 62.6 % (47.0-73.0); PLATELET COUNT AUTOMATED 259 10*3/uL (130-400); RED BLOOD COUNT 5.31 10*6/uL (4.10-5.10); RED CELL DISTRI WIDTH 11.5 % (0-14.5); WHITE BLOOD COUNT 9.6 10*3/uL (4.8-10.8)
[2022-08-18 17:52] LABS: ACT PARTIAL THROMBO TIME 23.9 SECONDS (20.0-32.1)
[2022-08-18 17:57] LABS: CREATININE 1.15 mg/dL (0.55-1.02); TOTAL PROTEIN 7.8 gm/dL (6.4-8.2)
[2022-08-18 19:11] VITALS: BP 131/81
[2022-08-18] MEDS ORDERED: FLONASE ALLERG9.9 ML NAS (20:00)
[2022-08-18] MEDS ORDERED: ATORVASTATIN CA40 M1 PO (20:03)
[2022-08-18 20:13] VITALS: BP 141/81
[2022-08-18 22:10] VITALS: BP 151/89
== END 2022-08-18 22:51 | disposition left against medical advice (07) | DRG 281 ==
LOC: ED 17:14 → EDHOLD 18:47 → ICCU 20:38
PROVIDERS: Emergency Medicine; ADMIT Internal Medicine; ATTEND Internal Medicine
DX: R07.9 Chest pain, unspecified (principal); I21.A1 Myocardial infarction type 2; E87.1 Hypo-osmolality and hyponatremia; E87.20 Acidosis, unspecified; I47.1 Supraventricular tachycardia; K21.9 Gastro-esophageal reflux disease without esophagitis; J45.909 Unspecified asthma, uncomplicated; F31.9 Bipolar disorder, unspecified; F41.1 Generalized anxiety disorder; E78.5 Hyperlipidemia, unspecified; I10 Essential (primary) hypertension; G47.00 Insomnia, unspecified; E11.40 Type 2 diabetes mellitus with diabetic neuropathy, unspecified; Z53.29 Procedure and treatment not carried out because of patient's decision for other reasons; E11.65 Type 2 diabetes mellitus with hyperglycemia; E80.6 Other disorders of bilirubin metabolism; Z98.890 Other specified postprocedural states; Z88.6 Allergy status to analgesic agent; Z88.0 Allergy status to penicillin; Z88.7 Allergy status to serum and vaccine; Z90.49 Acquired absence of other specified parts of digestive tract; Z90.721 Acquired absence of ovaries, unilateral; Z98.51 Tubal ligation status; Z83.6 Family history of other diseases of the respiratory system; Z80.8 Family history of malignant neoplasm of other organs or systems

== ENCOUNTER 2023-09-30 11:54 | Emergency (ER) | payer MEDICARE ==
[~2023-09-30] VITALS: Ht 172.7 cm; Wt 72.6 kg
[~2023-09-30 11:54] MED LIST changes: +ATORVASTATIN CA40 M1 PO; +FLONASE ALLERG9.9 ML NAS; +JARDIANCE10 MG PO; +LEVOFLOXACIN500 MG PO; +Nystatin Cream15 GM T
[2023-09-30 12:10] VITALS: BP 157/90
[2023-09-30 12:49] LABS: BASO # 0.1 10*3/uL (0.0-0.1); BASO % 0.7 % (0.0-1.0); EOS # 0.3 10*3/uL (0.0-0.4); EOS % 2.8 % (1.0-4.0); HEMATOCRIT 41.7 % (37.0-47.0); LYMPH # 1.1 10*3/uL (1.3-4.4); LYMPH % 11.1 % (27.0-41.0); MEAN CELL VOLUME 91.2 fl (81.0-99.0); MEAN CORPUSCULAR HGB 32.4 pg (27.0-31.0); MEAN CORPUSCULAR HGB CONC 35.5 g/dl (33.0-37.0); MEAN PLATELET VOLUME 8.5 fl (9.6-12.3); MONO # 0.6 10*3/uL (0.1-1.0); MONO % 6.5 % (3.0-9.0); NEUT # 7.7 10*3/uL (2.3-7.9); PLATELET COUNT AUTOMATED 348 10*3/uL (130-400); RED BLOOD COUNT 4.57 10*6/uL (4.10-5.10); RED CELL DISTRI WIDTH 11.2 % (0-14.5); WHITE BLOOD COUNT 9.9 10*3/uL (4.8-10.8)
[2023-09-30 13:00] LABS: ACT PARTIAL THROMBO TIME 29.9 SECONDS (20.0-32.1)
[2023-09-30 13:11] LABS: POTASSIUM 3.6 mmol/L (3.4-5.1); TOTAL PROTEIN 7.9 gm/dL (6.0-8.0)
[2023-09-30 13:29] LABS: BILIRUBIN Negative (Negative); BLOOD Negative (Negative); CLARITY Clear (Clear); COLOR Yellow (Yellow); GLUCOSE 3+ (Negative); KETONE 1+ (Negative); LEUKO ESTERASE Negative (Negative); NITRITE Negative (Negative); PH 5.5 (4.5-8.0); SPECIFIC GRAVITY >= 1.030 (1.001-1.030)
[2023-09-30 13:32] LABS: URINE AMPHETAMINES Negative (1000ng/ml); URINE BARBITURATES Negative (200ng/ml); URINE BENZODIAZEPINES Negative (200ng/ml); URINE CANNABINOIDS (THC) Positive (50ng/ml); URINE COCAINE Negative (300ng/ml); URINE METHADONE Negative (300ng/ml); URINE OPIATES Negative (300ng/ml); URINE PHENCYCLIDINE Negative (25ng/ml)
[2023-09-30 13:35] LABS: BACTERIA TRACE
[2023-09-30 13:36] LABS: YEAST 2+
[2023-09-30] MEDS ORDERED: VIBRAMYCIN100 MG PO ×2 (13:55)
== END 2023-09-30 14:10 | disposition home or self-care (01) ==
LOC: ED 11:54
PROVIDERS: Internal Medicine
DX: L02.413 Cutaneous abscess of right upper limb (principal); E11.9 Type 2 diabetes mellitus without complications; R10.2 Pelvic and perineal pain; I10 Essential (primary) hypertension; F32.A Depression, unspecified; F41.9 Anxiety disorder, unspecified; J45.909 Unspecified asthma, uncomplicated; K21.9 Gastro-esophageal reflux disease without esophagitis; Z88.0 Allergy status to penicillin; Z88.5 Allergy status to narcotic agent; Z88.7 Allergy status to serum and vaccine; Z88.6 Allergy status to analgesic agent; Z90.49 Acquired absence of other specified parts of digestive tract; Z98.51 Tubal ligation status; Z98.890 Other specified postprocedural states; F12.90 Cannabis use, unspecified, uncomplicated; Z79.899 Other long term (current) drug therapy; F17.290 Nicotine dependence, other tobacco product, uncomplicated

== ENCOUNTER → 2023-10-10 | Outpatient (CLI) | payer MEDICARE ==
[~2023-10-10] MED LIST changes: +HYDROCODONE-AC1 EAC1 PO; +VIBRAMYCIN100 MG PO
== END | disposition home or self-care (01) ==
LOC: WOUNDCARE 01:58
PROVIDERS: ATTEND Nurse Practitioner Family
DX: L97.312 Non-pressure chronic ulcer of right ankle with fat layer exposed (principal); L89.892 Pressure ulcer of other site, stage 2; I87.2 Venous insufficiency (chronic) (peripheral); I73.9 Peripheral vascular disease, unspecified; L53.9 Erythematous condition, unspecified; R60.9 Edema, unspecified; Z87.891 Personal history of nicotine dependence

== ENCOUNTER → 2023-10-14 | Outpatient (CLI) | payer MEDICARE | END | disposition home or self-care (01) | LOC: WOUNDCARE 00:28 | PROVIDERS: ATTEND Nurse Practitioner Family | DX: L02.411 Cutaneous abscess of right axilla (principal); L98.9 Disorder of the skin and subcutaneous tissue, unspecified; E11.622 Type 2 diabetes mellitus with other skin ulcer; L98.492 Non-pressure chronic ulcer of skin of other sites with fat layer exposed; K21.9 Gastro-esophageal reflux disease without esophagitis; E78.5 Hyperlipidemia, unspecified; I10 Essential (primary) hypertension; F31.9 Bipolar disorder, unspecified ==

== ENCOUNTER 2023-10-17 17:42 | Emergency (ER) | payer MEDICARE ==
[~2023-10-17] VITALS: Ht 172.7 cm; Wt 70.3 kg
[2023-10-17 18:24] VITALS: BP 159/84
== END 2023-10-17 20:11 | disposition left against medical advice (07) ==
LOC: ED 17:42
DX: Z48.00 Encounter for change or removal of nonsurgical wound dressing (principal); Z88.0 Allergy status to penicillin; Z88.5 Allergy status to narcotic agent; Z88.7 Allergy status to serum and vaccine; Z88.6 Allergy status to analgesic agent; Z53.21 Procedure and treatment not carried out due to patient leaving prior to being seen by health care provider

== ENCOUNTER → 2023-10-18 | Outpatient (CLI) | payer MEDICARE | END | disposition home or self-care (01) | LOC: WOUNDCARE 11:19 | PROVIDERS: ATTEND Nurse Practitioner Family | DX: L02.411 Cutaneous abscess of right axilla (principal); L98.9 Disorder of the skin and subcutaneous tissue, unspecified; E11.622 Type 2 diabetes mellitus with other skin ulcer; L98.492 Non-pressure chronic ulcer of skin of other sites with fat layer exposed; K21.9 Gastro-esophageal reflux disease without esophagitis; E78.5 Hyperlipidemia, unspecified; I10 Essential (primary) hypertension; F31.9 Bipolar disorder, unspecified ==

== ENCOUNTER → 2023-10-25 | Outpatient (CLI) | payer MEDICARE | END | disposition home or self-care (01) | LOC: WOUNDCARE 01:32 | PROVIDERS: ATTEND Nurse Practitioner Family | DX: L02.411 Cutaneous abscess of right axilla (principal); L98.9 Disorder of the skin and subcutaneous tissue, unspecified; E11.9 Type 2 diabetes mellitus without complications; E78.5 Hyperlipidemia, unspecified; I10 Essential (primary) hypertension; K21.9 Gastro-esophageal reflux disease without esophagitis; F31.9 Bipolar disorder, unspecified ==

== ENCOUNTER → 2023-11-11 | Outpatient (CLI) | payer MEDICARE | END | disposition home or self-care (01) | LOC: WOUNDCARE 03:34 | PROVIDERS: ATTEND Nurse Practitioner Family | DX: E11.622 Type 2 diabetes mellitus with other skin ulcer (principal); L98.491 Non-pressure chronic ulcer of skin of other sites limited to breakdown of skin; L02.91 Cutaneous abscess, unspecified; L98.9 Disorder of the skin and subcutaneous tissue, unspecified; K21.9 Gastro-esophageal reflux disease without esophagitis; E78.5 Hyperlipidemia, unspecified; I10 Essential (primary) hypertension; F31.9 Bipolar disorder, unspecified ==

== ENCOUNTER → 2024-01-13 | Outpatient (CLI) | payer MEDICARE ==
[2024-01-13 16:06] LABS: BASO # 0.1 10*3/uL (0.0-0.1); BASO % 0.9 % (0.0-1.0); EOS # 0.1 10*3/uL (0.0-0.4); EOS % 1.8 % (1.0-4.0); HEMATOCRIT 48.8 % (37.0-47.0); LYMPH # 2.1 10*3/uL (1.3-4.4); LYMPH % 26.9 % (27.0-41.0); MEAN CELL VOLUME 89.9 fl (81.0-99.0); MEAN CORPUSCULAR HGB 30.8 pg (27.0-31.0); MEAN CORPUSCULAR HGB CONC 34.2 g/dl (33.0-37.0); MEAN PLATELET VOLUME 8.5 fl (9.6-12.3); MONO # 0.5 10*3/uL (0.1-1.0); MONO % 6.7 % (3.0-9.0); NEUT % 63.4 % (47.0-73.0); PLATELET COUNT AUTOMATED 269 10*3/uL (130-400); RED BLOOD COUNT 5.43 10*6/uL (4.10-5.10); RED CELL DISTRI WIDTH 11.6 % (0-14.5); WHITE BLOOD COUNT 7.9 10*3/uL (4.8-10.8)
[2024-01-13 16:28] LABS: ALKALINE PHOSPHATASE 141 U/L (46-116); BUN 10 mg/dl (9-23); CHLORIDE 103 mmol/L (98-107); LIPASE 31 U/L (12-53); POTASSIUM 4.1 mmol/L (3.4-5.1); SGPT/ALT 9 U/L (5-49); TOTAL PROTEIN 7.7 gm/dL (6.0-8.0)
== END | disposition home or self-care (01) ==
LOC: LAB 15:43
PROVIDERS: ATTEND Nurse Practitioner Family
DX: R11.2 Nausea with vomiting, unspecified (principal); R19.7 Diarrhea, unspecified

== ENCOUNTER 2024-03-13 14:36 | Emergency (ER) | payer OTHER ==
[~2024-03-13] VITALS: Ht 177.8 cm; Wt 64.9 kg
[2024-03-13 14:47] VITALS: BP 136/74
[2024-03-13] MEDS ORDERED: methylPREDNISolone sod succ 125 MG VIAL IM ONE (14:55)
[2024-03-13 15:01] LABS: BASO # 0.1 10*3/uL (0.0-0.1); BASO % 0.9 % (0.0-1.0); EOS # 0.2 10*3/uL (0.0-0.4); EOS % 2.2 % (1.0-4.0); HEMATOCRIT 46.1 % (37.0-47.0); LYMPH # 2.2 10*3/uL (1.3-4.4); LYMPH % 22.5 % (27.0-41.0); MEAN CORPUSCULAR HGB CONC 35.6 g/dl (33.0-37.0); MEAN PLATELET VOLUME 8.7 fl (9.6-12.3); MONO # 0.5 10*3/uL (0.1-1.0); MONO % 5.2 % (3.0-9.0); NEUT # 6.8 10*3/uL (2.3-7.9); NEUT % 68.9 % (47.0-73.0); PLATELET COUNT AUTOMATED 262 10*3/uL (130-400); RED BLOOD COUNT 5.12 10*6/uL (4.10-5.10); RED CELL DISTRI WIDTH 11.8 % (0-14.5); WHITE BLOOD COUNT 9.9 10*3/uL (4.8-10.8)
[2024-03-13 15:07] LABS: BILIRUBIN Negative (Negative); BLOOD Negative (Negative); CLARITY Clear (Clear); COLOR Dark Yellow (Yellow); GLUCOSE 3+ (Negative); KETONE Negative (Negative); LEUKO ESTERASE Trace (Negative); NITRITE Positive (Negative); PH 5.5 (4.5-8.0); SPECIFIC GRAVITY >= 1.030 (1.001-1.030)
[2024-03-13 15:23] LABS: YEAST 1+
[2024-03-13 15:30] LABS: ALKALINE PHOSPHATASE 164 U/L (46-116); BUN 14 mg/dl (9-23); CHLORIDE 103 mmol/L (98-107); LIPASE 40 U/L (12-53); SGPT/ALT 11 U/L (5-49); TOTAL PROTEIN 7.9 gm/dL (6.0-8.0)
[2024-03-13] MEDS ORDERED: SEPTDS PO (16:10)
== END 2024-03-13 16:35 | disposition home or self-care (01) ==
LOC: ED 14:36
PROVIDERS: Physician Assistant Medical
DX: E11.9 Type 2 diabetes mellitus without complications (principal); F31.9 Bipolar disorder, unspecified; F41.1 Generalized anxiety disorder; I10 Essential (primary) hypertension; E78.5 Hyperlipidemia, unspecified; N39.0 Urinary tract infection, site not specified; Z88.0 Allergy status to penicillin; Z88.6 Allergy status to analgesic agent; Z88.5 Allergy status to narcotic agent; Z88.7 Allergy status to serum and vaccine; Z79.899 Other long term (current) drug therapy; Z90.49 Acquired absence of other specified parts of digestive tract; Z98.890 Other specified postprocedural states; Z98.51 Tubal ligation status

== ENCOUNTER 2024-04-17 14:49 | Emergency (ER) | payer OTHER ==
[~2024-04-17] VITALS: Wt 71.7 kg
[~2024-04-17 14:49] MED LIST changes: +SEPTDS PO
[2024-04-17 14:54] VITALS: BP 143/94
[2024-04-17] MEDS ORDERED: CLINDAMYCIN HC300 MG PO (15:08)
[2024-04-17] MEDS ORDERED: BENZOCAINE 20% 11.9 GM GEL T STA (15:09)
[2024-04-17] MEDS ORDERED: Lidocaine Hydrochloride 15 ML UDC PO STA (15:09)
== END 2024-04-17 15:22 | disposition home or self-care (01) ==
LOC: ED 14:49
DX: K08.89 Other specified disorders of teeth and supporting structures (principal); K03.81 Cracked tooth; Z88.0 Allergy status to penicillin; Z88.6 Allergy status to analgesic agent; Z88.7 Allergy status to serum and vaccine; Z79.899 Other long term (current) drug therapy; Z79.2 Long term (current) use of antibiotics; Z90.49 Acquired absence of other specified parts of digestive tract; Z98.890 Other specified postprocedural states; Z98.51 Tubal ligation status

== ENCOUNTER 2024-08-07 13:49 | Emergency (ER) | payer OTHER ==
[~2024-08-07] VITALS: Ht 172.7 cm; Wt 70.3 kg
[2024-08-07 14:26] VITALS: BP 119/70
== END 2024-08-07 16:03 | disposition left against medical advice (07) ==
LOC: ED 13:49
DX: M54.50 Low back pain, unspecified (principal); M79.604 Pain in right leg; E11.9 Type 2 diabetes mellitus without complications; F32.A Depression, unspecified; F41.9 Anxiety disorder, unspecified; I10 Essential (primary) hypertension; J45.909 Unspecified asthma, uncomplicated; K21.9 Gastro-esophageal reflux disease without esophagitis; I25.2 Old myocardial infarction; Z53.21 Procedure and treatment not carried out due to patient leaving prior to being seen by health care provider; Z88.0 Allergy status to penicillin; Z88.5 Allergy status to narcotic agent; Z88.6 Allergy status to analgesic agent; Z88.7 Allergy status to serum and vaccine

== ENCOUNTER → 2024-11-01 | Outpatient (CLI) | payer OTHER ==
[2024-11-01 15:26] LABS: BASO # 0.1 10*3/uL (0.0-0.1); BASO % 0.9 % (0.0-1.0); EOS # 0.2 10*3/uL (0.0-0.4); EOS % 2.7 % (1.0-4.0); HEMATOCRIT 43.1 % (37.0-47.0); MEAN CELL VOLUME 91.5 fl (81.0-99.0); MEAN CORPUSCULAR HGB 32.5 pg (27.0-31.0); MEAN CORPUSCULAR HGB CONC 35.5 g/dl (33.0-37.0); MEAN PLATELET VOLUME 8.2 fl (9.6-12.3); MONO # 0.5 10*3/uL (0.1-1.0); MONO % 6.7 % (3.0-9.0); NEUT # 4.2 10*3/uL (2.3-7.9); NEUT % 62.2 % (47.0-73.0); PLATELET COUNT AUTOMATED 262 10*3/uL (130-400); RED BLOOD COUNT 4.71 10*6/uL (4.10-5.10); RED CELL DISTRI WIDTH 11.4 % (0-14.5); WHITE BLOOD COUNT 6.7 10*3/uL (4.8-10.8)
== END | disposition home or self-care (01) ==
LOC: LAB 15:07
PROVIDERS: ATTEND Podiatrist Foot & Ankle Surgery
DX: B99.9 Unspecified infectious disease (principal)

== ENCOUNTER 2025-02-22 14:07 | Emergency (ER) | payer OTHER ==
[~2025-02-22] VITALS: Ht 172.7 cm; Wt 68.0 kg
[2025-02-22] MEDS ORDERED: TIZANIDINE HCL4 MG PO (14:27)
[2025-02-22] MEDS ORDERED: MOUNJARO2.5 MG/0.1 SQ (14:27)
[2025-02-22 14:34] VITALS: BP 161/60
[2025-02-22] MEDS ORDERED: Ketorolac Tromethamine 30 MG/ML VIAL IM ONE (14:55)
[2025-02-22] MEDS ORDERED: methylPREDNISolone sod succ 125 MG VIAL IM ONE (14:55)
== END 2025-02-22 14:53 | disposition home or self-care (01) ==
LOC: ED 14:07
DX: M54.41 Lumbago with sciatica, right side (principal); M54.42 Lumbago with sciatica, left side; I10 Essential (primary) hypertension; E11.40 Type 2 diabetes mellitus with diabetic neuropathy, unspecified; E78.5 Hyperlipidemia, unspecified; J45.909 Unspecified asthma, uncomplicated; K21.9 Gastro-esophageal reflux disease without esophagitis; F32.A Depression, unspecified; Z88.0 Allergy status to penicillin; Z88.6 Allergy status to analgesic agent; Z88.5 Allergy status to narcotic agent; Z88.7 Allergy status to serum and vaccine; Z79.899 Other long term (current) drug therapy; Z90.49 Acquired absence of other specified parts of digestive tract; Z98.890 Other specified postprocedural states

== ENCOUNTER 2025-02-22 15:53 | Emergency (ER) | payer OTHER ==
[~2025-02-22] VITALS: Ht 172.7 cm; Wt 76.2 kg
[~2025-02-22 15:53] MED LIST changes: +MOUNJARO2.5 MG/0.1 SQ
[2025-02-22 16:04] VITALS: BP 193/90
[2025-02-22] MEDS ORDERED: diazePAM 5 MG TAB PO ONE (16:15)
[2025-02-22] MEDS ORDERED: MORPHINE Sulfate 2 MG/ML SYR IM ONE (16:15)
== END 2025-02-22 16:54 | disposition home or self-care (01) ==
LOC: ED 15:53
DX: M54.32 Sciatica, left side (principal); F31.9 Bipolar disorder, unspecified; F41.9 Anxiety disorder, unspecified; Z88.0 Allergy status to penicillin; Z88.6 Allergy status to analgesic agent; Z88.5 Allergy status to narcotic agent; Z88.7 Allergy status to serum and vaccine; Z79.899 Other long term (current) drug therapy; Z90.49 Acquired absence of other specified parts of digestive tract; Z98.890 Other specified postprocedural states

== ENCOUNTER 2025-02-26 13:08 | Emergency (ER) | payer OTHER ==
[~2025-02-26] VITALS: Ht 172.7 cm; Wt 76.2 kg
[2025-02-26 13:27] VITALS: BP 153/90
[2025-02-26] MEDS ORDERED: LIDOCAINE1 EACH T (13:54)
[2025-02-26] MEDS ORDERED: LIDOCAINE 1 EA PATCH T ONE (13:55)
[2025-02-26] MEDS ORDERED: Ketorolac Tromethamine 60 MG/2 ML VIAL IM ONE (13:55)
== END 2025-02-26 14:13 | disposition home or self-care (01) ==
LOC: ED 13:08
DX: M54.42 Lumbago with sciatica, left side (principal); J45.909 Unspecified asthma, uncomplicated; F31.9 Bipolar disorder, unspecified; K21.9 Gastro-esophageal reflux disease without esophagitis; E78.5 Hyperlipidemia, unspecified; I10 Essential (primary) hypertension; E11.65 Type 2 diabetes mellitus with hyperglycemia; E87.1 Hypo-osmolality and hyponatremia; I25.2 Old myocardial infarction; E11.40 Type 2 diabetes mellitus with diabetic neuropathy, unspecified; F41.9 Anxiety disorder, unspecified; F12.90 Cannabis use, unspecified, uncomplicated; Z98.890 Other specified postprocedural states; Z90.49 Acquired absence of other specified parts of digestive tract

== ENCOUNTER → 2025-03-19 | Outpatient (CLI) | payer OTHER ==
[~2025-03-19] MED LIST changes: +LIDOCAINE1 EACH T; +METHOCARBAMOL750 M1 PO; +Ondansetron4 MG PO; +PERCOCET 5-3251 EACH PO
== END | disposition home or self-care (01) ==
LOC: MRI 12:53
PROVIDERS: ATTEND Family Medicine
DX: M51.16 Intervertebral disc disorders with radiculopathy, lumbar region (principal); M47.27 Other spondylosis with radiculopathy, lumbosacral region; M48.07 Spinal stenosis, lumbosacral region

== ENCOUNTER 2025-03-21 20:28 | Emergency (ER) | payer OTHER ==
[~2025-03-21] VITALS: Ht 172.7 cm; Wt 73.9 kg
[~2025-03-21 20:28] MED LIST changes: -METHOCARBAMOL750 M1 PO; -Ondansetron4 MG PO; -PERCOCET 5-3251 EACH PO
[2025-03-21 21:07] VITALS: BP 152/80
[2025-03-21] MEDS ORDERED: Ketorolac Tromethamine 30 MG/ML VIAL IV ONE (21:35)
[2025-03-21] MEDS ORDERED: METHOCARBAMOL 750 MG TAB PO ONE (21:35)
[2025-03-21] MEDS ORDERED: MORPHINE Sulfate 2 MG/ML SYR IV ONE (21:35)
[2025-03-21] MEDS ORDERED: Dexamethasone Sodium Phospha 20 MG/5 ML VIAL IV ONE (21:35)
[2025-03-21] MEDS ORDERED: Ondansetron Hydrochloride 4 MG/2 ML VIAL IV ONE (21:35)
[2025-03-21] MEDS ORDERED: Ondansetron4 MG PO (22:33)
[2025-03-21] MEDS ORDERED: PREDNISONE20 M1 PO (22:33)
[2025-03-21] MEDS ORDERED: METHOCARBAMOL750 M1 PO (22:33)
[2025-03-21] MEDS ORDERED: PERCOCET 5-3251 EACH PO (22:37)
== END 2025-03-21 23:27 | disposition home or self-care (01) ==
LOC: ED 20:28
DX: M51.16 Intervertebral disc disorders with radiculopathy, lumbar region (principal); I10 Essential (primary) hypertension; J45.909 Unspecified asthma, uncomplicated; E11.9 Type 2 diabetes mellitus without complications; F32.A Depression, unspecified; F41.9 Anxiety disorder, unspecified; Z79.899 Other long term (current) drug therapy; Z88.0 Allergy status to penicillin; Z88.1 Allergy status to other antibiotic agents; Z88.5 Allergy status to narcotic agent; Z88.7 Allergy status to serum and vaccine; Z90.49 Acquired absence of other specified parts of digestive tract; Z98.51 Tubal ligation status; Z98.890 Other specified postprocedural states

== ENCOUNTER 2025-04-14 16:20 | Emergency (ER) | payer OTHER ==
[~2025-04-14] VITALS: Ht 172.7 cm; Wt 72.6 kg
[~2025-04-14 16:20] MED LIST changes: +METHOCARBAMOL750 M1 PO; +Ondansetron4 MG PO; +PERCOCET 5-3251 EACH PO
[2025-04-14 16:54] VITALS: BP 165/89
[2025-04-14 17:19] LABS: BASO # 0.1 10*3/uL (0.0-0.1); BASO % 0.6 % (0.0-1.0); EOS # 0.1 10*3/uL (0.0-0.4); EOS % 1.6 % (1.0-4.0); HEMATOCRIT 35.1 % (37.0-47.0); MEAN CELL VOLUME 91.4 fl (81.0-99.0); MEAN PLATELET VOLUME 8.4 fl (9.6-12.3); MONO # 0.5 10*3/uL (0.1-1.0); MONO % 6.2 % (3.0-9.0); NEUT # 5.5 10*3/uL (2.3-7.9); NEUT % 67.5 % (47.0-73.0); PLATELET COUNT AUTOMATED 258 10*3/uL (130-400); RED BLOOD COUNT 3.84 10*6/uL (4.10-5.10); RED CELL DISTRI WIDTH 12.1 % (0-14.5); WHITE BLOOD COUNT 8.1 10*3/uL (4.8-10.8)
[2025-04-14 17:38] LABS: BUN 11 mg/dl (9-23); CHLORIDE 103 mmol/L (98-107); POTASSIUM 3.6 mmol/L (3.4-5.1)
[2025-04-14] MEDS ORDERED: Sulfamethoxazole/Trimethopri 1 TAB TAB PO ONE (17:45)
[2025-04-14] MEDS ORDERED: SEPTDS PO (17:45)
== END 2025-04-14 18:00 | disposition home or self-care (01) ==
LOC: ED 16:20
PROVIDERS: Nurse Practitioner Family
DX: L03.115 Cellulitis of right lower limb (principal); Z88.0 Allergy status to penicillin; Z88.6 Allergy status to analgesic agent; Z88.5 Allergy status to narcotic agent; Z88.4 Allergy status to anesthetic agent; Z79.899 Other long term (current) drug therapy; Z90.49 Acquired absence of other specified parts of digestive tract; Z98.890 Other specified postprocedural states

== ENCOUNTER 2025-05-07 23:00 | Emergency (ER) | payer OTHER ==
[~2025-05-07] VITALS: Ht 172.7 cm; Wt 72.6 kg
[2025-05-07 23:48] VITALS: BP 164/89
[2025-05-08] MEDS ORDERED: Dexamethasone Sodium Phospha 20 MG/5 ML VIAL IV ONE (01:05)
[2025-05-08] MEDS ORDERED: Ondansetron Hydrochloride 4 MG/2 ML VIAL IV ONE (01:05)
[2025-05-08] MEDS ORDERED: MEDROL DOSEPAK4 MG PO (02:32)
== END 2025-05-08 02:40 | disposition home or self-care (01) ==
LOC: ED 23:00
DX: M51.26 Other intervertebral disc displacement, lumbar region (principal); Z88.0 Allergy status to penicillin; Z88.6 Allergy status to analgesic agent; Z88.5 Allergy status to narcotic agent; Z88.7 Allergy status to serum and vaccine; Z90.49 Acquired absence of other specified parts of digestive tract; Z98.890 Other specified postprocedural states

== ENCOUNTER 2025-05-23 19:38 | Emergency (ER) | payer OTHER ==
[~2025-05-23] VITALS: Ht 172.7 cm; Wt 72.6 kg
[2025-05-23] MEDS ORDERED: PREDNISONE50 MG PO (20:29)
[2025-05-23] MEDS ORDERED: Acetaminophen/Hydrocodone 5 MG/325 MG TABLET PO ONE (20:30)
== END 2025-05-23 20:58 | disposition home or self-care (01) ==
LOC: ED 19:38
DX: G89.29 Other chronic pain (principal); M54.50 Low back pain, unspecified; I10 Essential (primary) hypertension; E11.9 Type 2 diabetes mellitus without complications; J45.909 Unspecified asthma, uncomplicated; F32.A Depression, unspecified; F41.9 Anxiety disorder, unspecified; F12.90 Cannabis use, unspecified, uncomplicated; Z79.899 Other long term (current) drug therapy; Z88.0 Allergy status to penicillin; Z88.5 Allergy status to narcotic agent; Z88.6 Allergy status to analgesic agent; Z88.7 Allergy status to serum and vaccine; Z90.49 Acquired absence of other specified parts of digestive tract; Z98.51 Tubal ligation status; Z98.890 Other specified postprocedural states

== ENCOUNTER 2025-06-05 20:53 | Emergency (ER) | payer OTHER ==
[~2025-06-05] VITALS: Ht 172.7 cm; Wt 72.6 kg
[~2025-06-05 20:53] MED LIST changes: +PREDNISONE50 MG PO
[2025-06-05 21:07] VITALS: BP 156/100
[2025-06-05 21:41] LABS: BASO # 0.1 10*3/uL (0.0-0.1); BASO % 0.6 % (0.0-1.0); EOS # 0.2 10*3/uL (0.0-0.4); EOS % 2.1 % (1.0-4.0); MEAN CELL VOLUME 93.3 fl (81.0-99.0); MEAN CORPUSCULAR HGB 31.6 pg (27.0-31.0); MEAN PLATELET VOLUME 8.4 fl (9.6-12.3); MONO # 0.7 10*3/uL (0.1-1.0); MONO % 6.6 % (3.0-9.0); NEUT # 6.9 10*3/uL (2.3-7.9); NEUT % 69.2 % (47.0-73.0); NUCLEATED RED BLOOD CELL 0.0 % (0.0-0.0); NUCLEATED RED BLOOD CELL 0.0 10*3/uL (0.0-0.0); PLATELET COUNT AUTOMATED 228 10*3/uL (130-400); RED CELL DISTRI WIDTH 11.7 % (0-14.5)
[2025-06-05 22:08] LABS: BUN 11 mg/dl (9-23)
[2025-06-05] MEDS ORDERED: CLEOCIN HCL150 MG PO (22:14)
== END 2025-06-05 22:38 | disposition home or self-care (01) ==
LOC: ED 20:53
PROVIDERS: Nurse Practitioner Family
DX: L03.115 Cellulitis of right lower limb (principal); Z88.0 Allergy status to penicillin; Z88.6 Allergy status to analgesic agent; Z88.5 Allergy status to narcotic agent; Z88.7 Allergy status to serum and vaccine; Z79.899 Other long term (current) drug therapy; Z90.49 Acquired absence of other specified parts of digestive tract; Z98.890 Other specified postprocedural states

== ENCOUNTER 2025-06-18 20:47 | Emergency (ER) | payer OTHER ==
[~2025-06-18] VITALS: Ht 172.7 cm; Wt 72.6 kg
[~2025-06-18 20:47] MED LIST changes: +CLEOCIN HCL150 MG PO
[2025-06-18 20:56] VITALS: BP 185/74
[2025-06-18] MEDS ORDERED: ZYVOX600 MG PO (20:57)
[2025-06-18] MEDS ORDERED: Ondansetron Hydrochloride 4 MG/2 ML VIAL IV ONE (21:50)
[2025-06-18] MEDS ORDERED: Dexamethasone Sodium Phospha 20 MG/5 ML VIAL IV ONE (21:50)
[2025-06-19] MEDS ORDERED: OXYCODONE HCL (IR) 5 MG TAB PO ONE (00:05)
== END 2025-06-19 00:31 | disposition home or self-care (01) ==
LOC: ED 20:47
DX: M51.16 Intervertebral disc disorders with radiculopathy, lumbar region (principal); G89.29 Other chronic pain; I10 Essential (primary) hypertension; F12.90 Cannabis use, unspecified, uncomplicated; K21.9 Gastro-esophageal reflux disease without esophagitis; G47.00 Insomnia, unspecified; E78.5 Hyperlipidemia, unspecified; E11.40 Type 2 diabetes mellitus with diabetic neuropathy, unspecified; F31.9 Bipolar disorder, unspecified; Z88.6 Allergy status to analgesic agent; Z88.0 Allergy status to penicillin; Z88.5 Allergy status to narcotic agent; Z88.7 Allergy status to serum and vaccine; Z98.890 Other specified postprocedural states; Z90.49 Acquired absence of other specified parts of digestive tract

== ENCOUNTER 2025-07-09 17:49 | Emergency (ER) | payer OTHER ==
[~2025-07-09 17:49] MED LIST changes: +ZYVOX600 MG PO
[2025-07-09 18:00] VITALS: BP 158/73
[2025-07-09 18:39] LABS: BASO # 0.1 10*3/uL (0.0-0.1); BASO % 0.7 % (0.0-1.0); EOS # 0.2 10*3/uL (0.0-0.4); EOS % 2.2 % (1.0-4.0); MEAN CELL VOLUME 90.4 fl (81.0-99.0); MEAN CORPUSCULAR HGB 31.8 pg (27.0-31.0); MEAN PLATELET VOLUME 8.7 fl (9.6-12.3); MONO # 0.5 10*3/uL (0.1-1.0); MONO % 5.7 % (3.0-9.0); NEUT # 6.9 10*3/uL (2.3-7.9); NEUT % 72.8 % (47.0-73.0); NUCLEATED RED BLOOD CELL 0.0 % (0.0-0.0); NUCLEATED RED BLOOD CELL 0.0 10*3/uL (0.0-0.0); PLATELET COUNT AUTOMATED 335 10*3/uL (130-400); RED CELL DISTRI WIDTH 12.7 % (0-14.5)
[2025-07-09] MEDS ORDERED: SODIUM CHLORIDE 0.9% 1,000 ML IV ONE (18:40)
[2025-07-09 18:50] LABS: ACT PARTIAL THROMBO TIME 24.4 SECONDS (20.0-32.1)
[2025-07-09 19:00] LABS: BUN 13 mg/dl (9-23)
[2025-07-09] MEDS ORDERED: INSULIN REGULAR, HUMAN 1 UNIT/0.01 ML IV ONE (19:25)
[2025-07-09] MEDS ORDERED: Cefepime Hydrochloride 2 GM in SODIUM CHLORIDE 0.9% 50 ML IV ONE (19:39)
[2025-07-09] MEDS ORDERED: HYDROmorphONE Hydrochloride 0.5 MG/0.5 ML SYRINGE IV ONE (22:25)
[2025-07-09] MEDS ORDERED: Ondansetron Hydrochloride 4 MG/2 ML VIAL IV ONE (22:25)
== END 2025-07-09 22:36 | disposition left against medical advice (07) ==
LOC: ED 17:49
PROVIDERS: Internal Medicine
DX: S91.301A Unspecified open wound, right foot, initial encounter (principal); E11.9 Type 2 diabetes mellitus without complications; Z98.890 Other specified postprocedural states; Z88.0 Allergy status to penicillin; Z88.6 Allergy status to analgesic agent; Z88.5 Allergy status to narcotic agent; Z88.7 Allergy status to serum and vaccine; Z79.899 Other long term (current) drug therapy; Z90.49 Acquired absence of other specified parts of digestive tract; Z53.29 Procedure and treatment not carried out because of patient's decision for other reasons; X58.XXXA Exposure to other specified factors, initial encounter; Y93.89 Activity, other specified; Y92.89 Other specified places as the place of occurrence of the external cause; Y99.8 Other external cause status

== ENCOUNTER 2025-08-20 16:57 | Inpatient (IN) | payer OTHER ==
[~2025-08-20] VITALS: Ht 172.7 cm; Wt 70.3 kg
[2025-08-20 17:09] VITALS: BP 152/81
[2025-08-20 17:38] LABS: BASO # 0.1 10*3/uL (0.0-0.1); BASO % 0.8 % (0.0-1.0); EOS # 0.2 10*3/uL (0.0-0.4); EOS % 2.3 % (1.0-4.0); MEAN CELL VOLUME 88.5 fl (81.0-99.0); MEAN CORPUSCULAR HGB 31.3 pg (27.0-31.0); MEAN PLATELET VOLUME 8.3 fl (9.6-12.3); MONO # 0.5 10*3/uL (0.1-1.0); MONO % 5.3 % (3.0-9.0); NEUT # 7.1 10*3/uL (2.3-7.9); NEUT % 69.7 % (47.0-73.0); NUCLEATED RED BLOOD CELL 0.0 % (0.0-0.0); NUCLEATED RED BLOOD CELL 0.0 10*3/uL (0.0-0.0); PLATELET COUNT AUTOMATED 242 10*3/uL (130-400); RED CELL DISTRI WIDTH 11.9 % (0-14.5)
[2025-08-20 17:59] LABS: BUN 20 mg/dl (9-23)
[2025-08-20 18:01] LABS: ETHYL ALCOHOL < 3.0 mg/dl (<3)
[2025-08-20 22:13] LABS: BILIRUBIN Negative (Negative); BLOOD Negative (Negative); CLARITY Clear (Clear); COLOR Yellow (Yellow); KETONE Negative (Negative); LEUKO ESTERASE Trace (Negative); NITRITE Negative (Negative); PH 6.5 (4.5-8.0); SPECIFIC GRAVITY 1.015 (1.001-1.030); UROBILINOGEN 0.2 E.U./dl (0.0-1.0)
[2025-08-20 22:19] LABS: URINE AMPHETAMINES Negative (1000ng/ml); URINE BARBITURATES Negative (200ng/ml); URINE BENZODIAZEPINES Negative (200ng/ml); URINE CANNABINOIDS (THC) Positive (50ng/ml); URINE COCAINE Negative (300ng/ml); URINE METHADONE Negative (300ng/ml); URINE OPIATES Positive (300ng/ml); URINE PHENCYCLIDINE Negative (25ng/ml)
[2025-08-20 22:20] LABS: EPITHELIAL CELLS 0-2
[2025-08-20] MEDS ORDERED: VRAYLAR1.5 MG PO (22:28)
[2025-08-20] MEDS ORDERED: TRINTELLIX10 MG PO (22:28)
[2025-08-20] MEDS ORDERED: XANAX1 MG PO ×2 (22:29)
[2025-08-20] MEDS ORDERED: ALPRAZolam 0.5 MG TAB PO PRN (22:30)
[2025-08-20] MEDS ORDERED: SEROQUEL25 MG PO (22:30)
[2025-08-21] MEDS ORDERED: CARIPRAZINE HCL 1.5 MG CAPSULE PO SCH (21:00)
[2025-08-21] MEDS ORDERED: ALPRAZolam 0.5 MG TAB PO SCH (21:00)
== END 2025-08-20 23:37 | disposition home or self-care (01) | DRG 881 ==
LOC: ED 16:57 → 3N 19:14
PROVIDERS: Emergency Medicine; ADMIT Psychiatry & Neurology Psychiatry; ATTEND Psychiatry & Neurology Psychiatry
DX: F43.21 Adjustment disorder with depressed mood (principal); Z88.0 Allergy status to penicillin; Z88.8 Allergy status to other drugs, medicaments and biological substances; Z91.09 Other allergy status, other than to drugs and biological substances; Z79.899 Other long term (current) drug therapy; Z90.49 Acquired absence of other specified parts of digestive tract; Z90.722 Acquired absence of ovaries, bilateral; Z82.5 Family history of asthma and other chronic lower respiratory diseases; Z83.3 Family history of diabetes mellitus; Z82.49 Family history of ischemic heart disease and other diseases of the circulatory system; Z80.8 Family history of malignant neoplasm of other organs or systems

== ENCOUNTER 2025-08-22 15:24 | Emergency (ER) | payer OTHER ==
[~2025-08-22] VITALS: Ht 172.7 cm; Wt 72.6 kg
[~2025-08-22 15:24] MED LIST changes: +VRAYLAR1.5 MG PO
[2025-08-22 15:33] VITALS: BP 158/92
[2025-08-22] MEDS ORDERED: HYDROmorphONE Hydrochloride 0.5 MG/0.5 ML SYRINGE IV ONE ×2 (16:00→17:20)
[2025-08-22] MEDS ORDERED: OXYCODONE HCL5 MG PO (17:22)
== END 2025-08-22 17:58 | disposition home or self-care (01) ==
LOC: ED 15:24
DX: M54.50 Low back pain, unspecified (principal); G89.29 Other chronic pain; E11.9 Type 2 diabetes mellitus without complications; F32.A Depression, unspecified; Z88.0 Allergy status to penicillin; Z88.6 Allergy status to analgesic agent; Z88.5 Allergy status to narcotic agent; Z88.7 Allergy status to serum and vaccine; Z79.899 Other long term (current) drug therapy; Z90.49 Acquired absence of other specified parts of digestive tract; Z98.890 Other specified postprocedural states

== ENCOUNTER 2025-08-24 21:59 | Emergency (ER) | payer OTHER ==
[~2025-08-24] VITALS: Wt 72.6 kg
[~2025-08-24 21:59] MED LIST changes: +OXYCODONE HCL5 MG PO
[2025-08-24 22:22] VITALS: BP 125/80
== END 2025-08-24 23:29 | disposition home or self-care (01) ==
LOC: ED 21:59
DX: F19.920 Other psychoactive substance use, unspecified with intoxication, uncomplicated (principal); K08.89 Other specified disorders of teeth and supporting structures; E11.9 Type 2 diabetes mellitus without complications; F32.A Depression, unspecified; F41.9 Anxiety disorder, unspecified; I10 Essential (primary) hypertension; J45.909 Unspecified asthma, uncomplicated; K21.9 Gastro-esophageal reflux disease without esophagitis; I25.2 Old myocardial infarction; F12.90 Cannabis use, unspecified, uncomplicated; Z90.49 Acquired absence of other specified parts of digestive tract; Z98.890 Other specified postprocedural states; Z90.721 Acquired absence of ovaries, unilateral; Z88.0 Allergy status to penicillin; Z88.5 Allergy status to narcotic agent; Z88.7 Allergy status to serum and vaccine; Z88.8 Allergy status to other drugs, medicaments and biological substances

== ENCOUNTER → 2025-10-01 | Outpatient (CLI) | payer OTHER ==
[2025-10-01 12:27] LABS: BASO # 0.1 10*3/uL (0.0-0.1); BASO % 0.8 % (0.0-1.0); EOS # 0.4 10*3/uL (0.0-0.4); EOS % 5.8 % (1.0-4.0); MEAN CELL VOLUME 92.5 fl (81.0-99.0); MEAN CORPUSCULAR HGB 31.1 pg (27.0-31.0); MEAN PLATELET VOLUME 8.5 fl (9.6-12.3); MONO # 0.4 10*3/uL (0.1-1.0); MONO % 6.0 % (3.0-9.0); NEUT # 4.4 10*3/uL (2.3-7.9); NEUT % 61.4 % (47.0-73.0); NUCLEATED RED BLOOD CELL 0.0 % (0.0-0.0); NUCLEATED RED BLOOD CELL 0.0 10*3/uL (0.0-0.0); PLATELET COUNT AUTOMATED 249 10*3/uL (130-400); RED CELL DISTRI WIDTH 12.4 % (0-14.5)
[2025-10-01 12:51] LABS: BUN 16 mg/dl (9-23); SGPT/ALT 13 U/L (5-49)
== END | disposition home or self-care (01) ==
LOC: LAB 11:37
PROVIDERS: ATTEND Internal Medicine
DX: Z01.818 Encounter for other preprocedural examination (principal); M54.2 Cervicalgia; E11.9 Type 2 diabetes mellitus without complications; I51.7 Cardiomegaly; M85.88 Other specified disorders of bone density and structure, other site